=== PATIENT | male | born 1995 | race Caucasian/White ===

== ENCOUNTER → 2017-01-10 | Outpatient (CLI) | payer BC ==
[~2017-01-10] MED LIST: OSLT75C PO
== END ==
LOC: RT 12:19
PROVIDERS: ATTEND Family Medicine
DX: R05 Cough (principal)
CPT/HCPCS: 94060; 94726; 94729

== ENCOUNTER → 2017-12-12 | Outpatient (CLI) | payer BC ==
--- NOTE | 2017-12-12 11:03 | Diagnostic Imaging Report ---
EXAM: CERVICAL SPINE 3 VIEWS OR LESS INDICATION: NECK PAIN COMPARISON: None. FINDINGS: Normal alignment. Vertebral body heights preserved. No fractures. Normal prevertebral soft tissues. No substantial spondylotic change. IMPRESSION: Negative cervical spine radiographs. Dictated by: Dictated on workstation # [id number]
== END ==
LOC: RAD 10:34
PROVIDERS: ATTEND Nurse Practitioner Family
DX: M54.2 Cervicalgia (principal)
CPT/HCPCS: 72040

== ENCOUNTER → 2019-03-12 | Outpatient (CLI) | payer BC, OTHER ==
[~2019-03-12] MED LIST changes: +ONDA4TAB10 PO; +TRAM50TA2 PO
--- NOTE | 2019-03-12 12:25 | Diagnostic Imaging Report ---
PROCEDURE: US Gallbladder. TECHNIQUE: Multiple real-time grayscale images were obtained over the right upper quadrant in various projections. INDICATION: Upper quadrant pain, nausea, vomiting, diarrhea COMPARISON: None available. Findings: The liver demonstrates diffusely increased echogenicity with a coarsened echotexture without focal hepatic mass. Layering internal echoes are identified within the gallbladder. There is however no evidence of gallbladder wall thickening or pericholecystic fluid. The common bile duct is within normal limits measuring 0.5 cm. The pancreas is obscured by overlying bowel gas. The right kidney is within normal limits size. No evidence of hydronephrosis or solid renal mass. No significant free fluid. Negative sonographic Martinez sign. Normal direction of flow within the main portal vein. Minimally visualized portions of inferior vena cava and aorta are unremarkable. Impression: Sludge and/or tiny stones within the gallbladder without evidence of acute cholecystitis. Fatty infiltration of the liver. Dictated by: Dictated on workstation # [id number]
== END ==
LOC: RAD 06:39
PROVIDERS: ATTEND Surgery
DX: K76.0 Fatty (change of) liver, not elsewhere classified (principal); R19.7 Diarrhea, unspecified
CPT/HCPCS: 76705

== ENCOUNTER 2019-03-16 06:21 | Outpatient (CLI) | payer BC ==
[~2019-03-16] VITALS: Ht 165.1 cm; Wt 54.4 kg
[~2019-03-16 06:21] MED LIST changes: -ONDA4TAB10 PO; -TRAM50TA2 PO
[2019-03-16] MEDS ORDERED: ONDA4TAB10 PO (09:57)
[2019-03-16] MEDS ORDERED: TRAM50TA2 PO (09:57)
== END 2019-03-16 10:11 | disposition home or self-care (01) ==
LOC: PREOP 06:21
PROVIDERS: ATTEND Surgery
DX: Z01.818 Encounter for other preprocedural examination (principal)

== ENCOUNTER 2019-03-18 09:14 | Day surgery (SDC) | payer BC ==
[2019-03-18] VITALS (12 sets, daily range): BP systolic 105–137; BP diastolic 64–106
[~2019-03-18] VITALS: Ht 165.1 cm; Wt 54.4 kg
[~2019-03-18 09:14] MED LIST changes: +ONDA4TAB10 PO; +TRAM50TA2 PO
[2019-03-18] MEDS: LACTATED RINGERS 1,000 ML IV PRN ×2 (09:45→14:25)
[2019-03-18 09:56] LABS: BASOPHILS % (AUTO) 1 % (0-10); EOSINOPHILS # (AUTO) 0.1 10^3/uL (0.0-0.3); EOSINOPHILS % (AUTO) 2 % (0-10); HEMATOCRIT 42 % (40-54); HEMOGLOBIN 15.1 G/DL (13.3-17.7); LYMPHOCYTES # (AUTO) 3.3 X 10^3 (1.0-4.0); LYMPHOCYTES % (AUTO) 46 % (12-44); MEAN CORPUSCULAR HEMOGLOBIN 29 PG (25-34); MEAN CORPUSCULAR HGB CONC 36 G/DL (32-36); MEAN CORPUSCULAR VOLUME 81 FL (80-99); MEAN PLATELET VOLUME 10.4 FL (7.4-10.4); MONOCYTES # (AUTO) 0.5 X 10^3 (0.0-1.0); MONOCYTES % (AUTO) 7 % (0-12); NEUTROPHILS # (AUTO) 3.2 X 10^3 (1.8-7.8); NEUTROPHILS % (AUTO) 44 % (42-75); PLATELET COUNT 305 10^3/uL (130-400); RED CELL DISTRIBUTION WIDTH 12.3 % (10.0-14.5); WHITE BLOOD COUNT 7.2 10^3/uL (4.3-11.0)
--- NOTE | 2019-03-18 10:41 | Progress Note-Pre Operative ---
Pre-Operative Progress Note H&P Reviewed The H&P was reviewed, patient examined and no changes noted. Date Seen by Provider: March 18, 2019 Time Seen by Provider: 10: Date H&P Reviewed: March 18, 2019 Time H&P Reviewed: 10:30 Pre-Operative Diagnosis: chronic calculous cholecystitis, GERD BAO WEINSTEIN MD March 18, 2019 10:41
[2019-03-18] MEDS ORDERED: HYDR-34 PO (10:44)
[2019-03-18] MEDS ORDERED: morphine INJ 10 MG/ML 1ML (SYR OR VIAL) IVP PRN ×2 (10:45)
[2019-03-18] MEDS ORDERED: ACETAMINOPHEN 325 MG TABLET PO PRN (10:45)
[2019-03-18] MEDS ORDERED: ONDANSETRON 4 MG/2 ML (SDV) Z0FRAN IVP PRN (10:45)
[2019-03-18] MEDS ORDERED: oxyCODONE/APAP 5/325MG (PERCOCET 5) TABLET PO PRN (10:45)
--- NOTE | 2019-03-18 10:45 | Discharge Inst-Surgical ---
D/C Lap Instructions-CORINNA New, Converted, or Re-Newed RX: RX on Chart Follow Up Appt in 2 weeks Activity as tolerated No driving for 24 hours No driving while on pain medications Incentive Spirometry use every 2 hours while awake Regular Diet Symptoms to Report: Fever over 101 degree F, Nausea/Vomiting Infection Signs and Symptoms to report: Increased redness, Foul odor of wound, Increased drainage Bathing instructions: May shower Operative Area Clean/Dry; Keep incision clean/dry If any problems/questions: Contact your physician or go to Emergency Room BAO WEINSTEIN MD March 18, 2019 10:45
[2019-03-18] MEDS ORDERED: ceFAZolin 2 GM/50 ML NS 50 ML IV ONE (11:30)
--- OUTSIDE RECORDS SUMMARY | 2019-03-18 12:21 | XMS REPORT | Continuity of Care Document ---
Author Organization Unknown Address Unknown Allergies Active Description Code Type Severity Reaction Onset Reported/Identified Relationship to Patient Clinical Status Yes No Known Drug Allergies [id number] Drug Allergy Unknown N/A 10/31/2012 Medications There is no data. Problems Date Dx Coded Attending Type Code Diagnosis Diagnosed By 10/31/2012 Ot 487.1 FLU W RESP MANIFEST NEC 10/31/2012 Ot 780.60 FEVER, UNSPECIFIED 02/19/2016 ORENDER DO, ZULEIKA S Ot M54.6 PAIN IN THORACIC SPINE 02/28/2016 ORENDER DO, ZULEIKA S Ot M54.6 PAIN IN THORACIC SPINE 03/01/2016 ORENDER DO, ZULEIKA S Ot M54.6 PAIN IN THORACIC SPINE 03/05/2016 ORENDER DO, ZULEIKA S Ot M54.6 PAIN IN THORACIC SPINE 07/04/2016 ORENDER DO, ZULEIKA S Ot M54.6 PAIN IN THORACIC SPINE 01/10/2017 ORENDER DO, ZULEIKA S Ot M54.6 PAIN IN THORACIC SPINE 01/10/2017 ORENDER DO, ZULEIKA S Ot R05 COUGH 01/13/2017 ORENDER DO, ZULEIKA S Ot M54.6 PAIN IN THORACIC SPINE 01/13/2017 ORENDER DO, ZULEIKA S Ot R05 COUGH 01/16/2017 ORENDER DO, ZULEIKA S Ot R05 COUGH 01/16/2017 ORENDER DO, ZULEIKA S Ot M54.6 PAIN IN THORACIC SPINE 01/16/2017 ORENDER DO, ZULEIKA S Ot R05 COUGH 01/21/2017 ORENDER DO, ZULEIKA S Ot R05 COUGH 03/19/2017 ORENDER DO, ZULEIKA S Ot M54.6 PAIN IN THORACIC SPINE 03/19/2017 ORENDER DO, ZULEIKA S Ot R05 COUGH 03/20/2017 ORENDER DO, ZULEIKA S Ot M54.6 PAIN IN THORACIC SPINE 03/20/2017 ORENDER DO, ZULEIKA S Ot R05 COUGH 03/24/2017 ORENDER DO, ZULEIKA S Ot M54.6 PAIN IN THORACIC SPINE 03/24/2017 ORENDER DO, ZULEIKA S Ot R05 COUGH 03/25/2017 ORENDER DO, ZULEIKA S Ot M54.6 PAIN IN THORACIC SPINE 03/25/2017 ORENDER DO, ZULEIKA S Ot R05 COUGH 10/04/2017 ORENDER DO, ZULEIKA S Ot M54.6 PAIN IN THORACIC SPINE 10/04/2017 ORENDER DO, ZULEIKA S Ot R05 COUGH 10/04/2017 ORENDER DO, ZULEIKA S Ot M54.6 PAIN IN THORACIC SPINE 10/04/2017 ORENDER DO, ZULEIKA S Ot R05 COUGH 12/15/2017 BELTRAN, SHUKRI R DATA MODELING ARCHITECT Ot M54.2 CERVICALGIA 12/24/2017 BELTRAN, SHUKRI R DATA MODELING ARCHITECT Ot M54.2 CERVICALGIA 12/25/2017 BELTRAN, SHUKRI R DATA MODELING ARCHITECT Ot M54.2 CERVICALGIA 12/25/2017 BELTRAN, SHUKRI R DATA MODELING ARCHITECT Ot M54.2 CERVICALGIA 08/24/2018 BELTRAN, SHUKRI R DATA MODELING ARCHITECT Ot M54.2 CERVICALGIA 03/16/2019 BAO WEINSTEIN MD Ot K76.0 FATTY (CHANGE OF) LIVER, NOT ELSEWHERE C 03/16/2019 BAO WEINSTEIN MD Ot R19.7 DIARRHEA, UNSPECIFIED 03/17/2019 BAO WEINSTEIN MD Ot Z01.818 ENCOUNTER FOR OTHER PREPROCEDURAL EXAMIN Procedures There is no data. Results There is no data. Encounters ACCT No. Visit Date/Time Discharge Status Pt. Type Provider Facility Loc./Unit Complaint 02/201803/03/2019 14:09:49 03/03/2019 23:59:59 CLS Outpatient Joaquim Yepezqueline Antonio. [id number] 03/16/2019 06:21:00 03/16/2019 10:11:00 DIS Outpatient BAO WEINSTEIN MD [facility] PREOP REFLUX,CHRONIC CALCULOUS CHOLECYSTITIS [id number] 03/12/2019 06:39:00 03/12/2019 23:59:59 CLS Outpatient BAO WEINSTEIN MD [facility] RAD RUQ PAIN,N/V,DIARRHEA [id number] 12/12/2017 10:34:00 12/12/2017 23:59:59 CLS Outpatient SHUKRI GONG DATA MODELING ARCHITECT [facility] RAD NECK PAIN [id number] 01/10/2017 12:19:00 01/10/2017 23:59:59 CLS Outpatient ZULEIKA YEPEZ DO [facility] RT COUGH [id number] 02/15/2016 13:34:00 02/15/2016 23:59:59 CLS Outpatient ZULEIKA YEPEZ DO [facility] RAD THORAIC PAIN [id number] 03/22/2019 12:45:00 PEN BAO Wylie MD [facility] CARD RUQ PAIN,N/V,DIARRHEA [id number] 03/18/2019 13:30:00 PEN BAO Wylie MD [facility] SDC REFLUX,CHRONIC CALCULOUS CHOLECYSTITIS [id number] 10/31/2012 22:01:00 Document Registration
[2019-03-18] MEDS ORDERED: MIDAZOLAM 2 MG/2 ML (VERSED) VIAL ONE ×2 (12:42→12:52)
[2019-03-18] MEDS ORDERED: MIDAZOLAM 2 MG/2 ML (VERSED) VIAL IV ONE (12:45)
[2019-03-18] MEDS ORDERED: BUP/EPI 0.5% 1:200,000 (SENSORCAINE) 30 ML VIAL ONE (12:51)
[2019-03-18] MEDS ORDERED: proPOfol 200 MG/20 ML (DIPRIVAN) VIAL IV ONE (12:52)
[2019-03-18] MEDS ORDERED: LIDOCAINE PF 2% 5 ML (XYLOCAINE) VIAL ONE (12:52)
[2019-03-18] MEDS ORDERED: fentaNYL INJECTION 100 MCG/2 ML AMP ONE (12:53)
[2019-03-18] MEDS ORDERED: ROCURONIUM 10 MG/ML 5 ML SYRINGE IV ONE (12:56)
[2019-03-18] MEDS ORDERED: DEXAMETHASONE 10 MG/ML (DECADRON) 1 ML VIAL ONE (12:56)
[2019-03-18] MEDS ORDERED: ONDANSETRON 4 MG/2 ML (SDV) Z0FRAN ONE (12:56)
[2019-03-18] MEDS ORDERED: SEVOFLURANE (ULTANE) 15 ML INHAL SOLN ONE (14:12)
[2019-03-18] MEDS ORDERED: GLYCOPYRROLATE 0.2 MG/ML (ROBINUL) 2 ML VIAL ONE (14:21)
[2019-03-18] MEDS ORDERED: NEOSTIGMINE 1 MG/ML 5 ML SYRINGE ONE (14:21)
--- NOTE | 2019-03-18 14:21 | Anesthesia-General Post-Op ---
General Patient Condition Mental Status/LOC: Same as Preop Cardiovascular: Satisfactory Nausea/Vomiting: Absent Respiratory: Satisfactory Pain: Controlled Complications: Absent Post Op Complications Complications None Follow Up Care/Instructions Patient Instructions None needed. Anesthesia/Patient Condition Patient Condition Patient is doing well, no complaints, stable vital signs, no apparent adverse anesthesia problems. No complications reported per nursing. [place] [facility] [place]: Yes ALY KUMAR CRNA March 18, 2019 14:21
[2019-03-18] MEDS ORDERED: morphine INJ 10 MG/ML 1ML (SYR OR VIAL) IVP ONE (15:15)
--- NOTE | 2019-03-18 20:33 | OPERATIVE REPORT ---
DATE OF SERVICE: 03/18/2019 ATTENDING PRIMARY CARE PHYSICIAN: Dr. Yepez. PREOPERATIVE DIAGNOSIS: Chronic calculous cholecystitis. POSTOPERATIVE DIAGNOSIS: Chronic calculous cholecystitis. PROCEDURE: Laparoscopic cholecystectomy. SURGEON: Bao Weinstein MD ANESTHESIA: Conscious sedation. ESTIMATED BLOOD LOSS: Minimal. FINDINGS: Slight gallbladder wall thickening as well as gallbladder dilatation, thick biliary sludge. DISPOSITION: The patient tolerated the procedure well. INDICATIONS: The patient is a 23-year-old male who was referred over to us for epigastric pain, which had been going on for the past year; however, has become worse and has become more frequent. He reports that this was initially discomfort; however, did develop a bloating as well as nausea usually after meals. He was seen by his primary care physician and was started on Protonix. However, states that this did not help. He had an ultrasound performed, which did show gallstones. DESCRIPTION OF PROCEDURE: The patient was brought to the operating room, laid supine on the table. After adequate IV pain and sedating medications and general endotracheal intubation, the abdomen was prepped and draped in standard surgical fashion. A 0.5% Marcaine with epinephrine was then used to anesthetize the overlying skin in the left upper abdominal quadrant and a transverse skin incision made using a 15 blade. An 0 silk suture was applied to the medial aspect of the incision for retraction and a Veress needle inserted with a low opening pressure of 0 mmHg and the abdomen was then insufflated to 15 mmHg pressure. The Veress needle removed and a 5 mm Xcel trocar placed followed by a 5 mm 45 degree angle laparoscope visualizing the peritoneal cavity. A 4-quadrant abdominal exploration was performed. There was a dilated gallbladder as well as a mild gallbladder wall thickening. It was visualized the stomach, liver, omentum appeared normal. Under direct visualization, we then proceeded to place a supraumbilical 10 mm port after the skin and peritoneal lining were anesthetized using 0.5% Marcaine with epinephrine and a transverse skin incision made using a 15 blade. In a similar manner, a right upper abdominal quadrant 5 mm ports placed. The patient was then placed in reverse Trendelenburg position as well as plane right side up, left side down. The fundus of the gallbladder was retracted anteriorly and superiorly. The hepatoduodenal ligament was then opened using blunt dissection as well as cautery on the hook instrument. The critical view of safety was identified including the triangle of Calot as well as the cystic duct and artery is only two structures going into the gallbladder as well as the cystic plate behind the proximal gallbladder. A timeout was then taken and the cystic duct and artery were clipped proximally, distally and cut with EndoShears. The gallbladder was then dissected off the liver bed using cautery and the hook instrument with visualization of good hemostasis as well as no leaking ducts of Luschka. The gallbladder was removed through the 10 mm port site using an EndoCatch bag. The 10 mm port site fascia and peritoneum were then closed under direct visualization using a Rishi-Joan device and 0 Vicryl suture. The abdomen was desufflated and remaining ports removed. All skin incisions were closed using 4-0 Monocryl running subcuticular sutures. Wounds were then cleaned and covered with Dermabond. The patient tolerated the procedure well. We will start him on IV and oral pain medication as well as a clear liquid diet. Once he is tolerating clears, has good pain control with oral pain medications, ambulating well, we will discharge him home. He was instructed to do no heavy lifting or exertion for the next two weeks. Job ID: [id number] DocumentID: [id number] Dictated Date: 03/18/2019 14:29:31 Director Of [employer] Date: 03/18/2019 20:32:54 Dictated By: BAO WEINSTEIN MD
== END 2019-03-18 17:30 | disposition home or self-care (01) ==
LOC: SDC 09:14
PROVIDERS: ATTEND Surgery
DX: K81.1 Chronic cholecystitis (principal); K21.9 Gastro-esophageal reflux disease without esophagitis
CPT/HCPCS: 36415; 85025; 87081

== ENCOUNTER → 2019-09-21 | Outpatient (CLI) | payer BC ==
[~2019-09-21] MED LIST changes: +HYDR-34 PO
--- NOTE | 2019-09-21 15:44 | Diagnostic Imaging Report ---
INDICATION: Injury to the left foot with pain in the region of the left great toe. TIME OF EXAM: 3:03 p.m. FINDINGS: Three views of the left foot were obtained. The metatarsals and phalanges are intact. Midfoot and hindfoot are unremarkable. No fractures are seen. IMPRESSION: No acute bony abnormality is detected. Dictated by: Dictated on workstation # [id number]
== END ==
LOC: RAD 14:42
PROVIDERS: ATTEND Nurse Practitioner Family
DX: S99.922A Unspecified injury of left foot, initial encounter (principal)
CPT/HCPCS: 73630

== ENCOUNTER 2020-01-05 05:47 | Outpatient (CLI) | payer BC ==
[~2020-01-05] VITALS: Ht 157.5 cm; Wt 72.7 kg
[~2020-01-05 05:47] MED LIST changes: +ONDA-105 PO; -ONDA4TAB10 PO; -TRAM50TA2 PO; +TRM50T PO
[2020-01-05] MEDS ORDERED: NF-COLE1GM PO (15:45)
[2020-01-05] MEDS ORDERED: PANT40TA2 PO (15:45)
== END 2020-01-05 15:47 | disposition home or self-care (01) ==
LOC: PREOP 05:47
PROVIDERS: ATTEND Surgery
DX: Z01.818 Encounter for other preprocedural examination (principal)

== ENCOUNTER 2020-05-15 05:39 | Outpatient (RCR) | payer BC ==
[~2020-05-15] VITALS: Ht 157.5 cm; Wt 73.0 kg
[~2020-05-15 05:39] MED LIST changes: +NF-COLE1GM PO; +PANT40TA2 PO
[2020-05-15] MEDS ORDERED: SUCR1TAB PO ×2 (11:48)
[2020-05-15] MEDS ORDERED: DICY10CA12 PO ×2 (11:48)
[2020-05-15] MEDS ORDERED: ONDA-105 PO ×2 (11:48)
== END 2020-05-15 12:03 | disposition home or self-care (01) ==
LOC: PREOP 05:39
PROVIDERS: ATTEND Otolaryngology Otolaryngology/Facial Plastic Surgery
DX: Z01.812 Encounter for preprocedural laboratory examination (principal); R04.0 Epistaxis; Z20.828 Contact with and (suspected) exposure to other viral communicable diseases
CPT/HCPCS: 87635

== ENCOUNTER 2020-05-19 06:03 | Day surgery (SDC) | payer BC ==
[~2020-05-19] VITALS: Ht 157.5 cm; Wt 73.0 kg
[2020-05-19] VITALS (12 sets, daily range): BP systolic 105–119; BP diastolic 63–95
[~2020-05-19 06:03] MED LIST changes: +DICY10CA12 PO; +SUCR1TAB PO
[2020-05-19] MEDS ORDERED: FAMOTIDINE 20MG/2ML IV (PEPCID) IV ONE (06:30)
[2020-05-19] MEDS ORDERED: fentaNYL INJECTION 100 MCG/2 ML AMP IV ONE (06:30)
[2020-05-19] MEDS ORDERED: ONDANSETRON 4 MG/2 ML (SDV) Z0FRAN IV ONE (06:30)
[2020-05-19] MEDS: LACTATED RINGERS 1,000 ML IV PRN ×2 (07:20→09:18)
--- NOTE | 2020-05-19 07:21 | Progress Note-Pre Operative ---
Pre-Operative Progress Note H&P Reviewed The H&P was reviewed, patient examined and no changes noted. Date Seen by Provider: May 19, 2020 Time Seen by Provider: : Date H&P Reviewed: May 19, 2020 Time H&P Reviewed: :30 Pre-Operative Diagnosis: Bilat Chronic/ Recurrent Epistaxis JUAQUIN TORBIIO MD May 19, 2020 07:21
[2020-05-19 07:25] LABS: BASOPHILS % (AUTO) 0 % (0-10); EOSINOPHILS # (AUTO) 0.3 10^3/uL (0.0-0.3); EOSINOPHILS % (AUTO) 4 % (0-10); HEMATOCRIT 42 % (40-54); HEMOGLOBIN 14.9 G/DL (13.3-17.7); LYMPHOCYTES # (AUTO) 3.4 X 10^3 (1.0-4.0); LYMPHOCYTES % (AUTO) 38 % (12-44); MEAN CORPUSCULAR HEMOGLOBIN 30 PG (25-34); MEAN CORPUSCULAR HGB CONC 36 G/DL (32-36); MEAN CORPUSCULAR VOLUME 83 FL (80-99); MEAN PLATELET VOLUME 10.5 FL (7.4-10.4); MONOCYTES # (AUTO) 0.7 X 10^3 (0.0-1.0); MONOCYTES % (AUTO) 8 % (0-12); NEUTROPHILS # (AUTO) 4.5 X 10^3 (1.8-7.8); NEUTROPHILS % (AUTO) 50 % (42-75); PLATELET COUNT 281 10^3/uL (130-400); RED CELL DISTRIBUTION WIDTH 12.7 % (10.0-14.5); WHITE BLOOD COUNT 8.9 10^3/uL (4.3-11.0)
[2020-05-19] MEDS ORDERED: proPOfol 200 MG/20 ML (DIPRIVAN) VIAL IV ONE (07:59)
[2020-05-19] MEDS ORDERED: ONDANSETRON 4 MG/2 ML (SDV) Z0FRAN ONE (07:59)
[2020-05-19] MEDS ORDERED: LIDOCAINE PF 2% 5 ML (XYLOCAINE) VIAL ONE (07:59)
[2020-05-19] MEDS ORDERED: MIDAZOLAM 2 MG/2 ML (VERSED) VIAL ONE (08:00)
[2020-05-19] MEDS ORDERED: SUCCINYLCHOLINE INJ 100 MG/5 ML SYR ONE (08:00)
[2020-05-19] MEDS ORDERED: fentaNYL INJECTION 100 MCG/2 ML AMP ONE (08:00)
[2020-05-19] MEDS ORDERED: SEVOFLURANE (ULTANE) 15 ML INHAL SOLN ONE ×2 (08:00→08:48)
[2020-05-19] MEDS ORDERED: COCAINE HCL 4% 2 ML SYR ONE (08:03)
[2020-05-19] MEDS ORDERED: MUPIROCIN 2% OINT 22 GM (BACTROBAN) TUBE ONE (08:04)
[2020-05-19] MEDS ORDERED: LIDOCAINE/EPI 1%-1:100,000 (XYLOCAINE) 20ML ONE (08:04)
[2020-05-19] MEDS ORDERED: PHENYLEPHRINE 0.5% NASAL SPR (NEO-SYNEPHRINE) REG ONE (08:04)
[2020-05-19] MEDS ORDERED: SUGAMMADEX 500 MG/5 ML VIAL (BRIDION) IV ONE (08:39)
[2020-05-19] MEDS ORDERED: D5 1/2 NS W/KCL 20 MEQ/L 1,000 ML IV SCH (08:53)
--- NOTE | 2020-05-19 08:53 | Progress Note-Post Operative ---
Post-Operative Progess Note Surgeon (s)/Sheep Or Calf Grader (s) Surgeon JUAQUIN TORIBIO MD Sheep Or Calf Grader n/a Pre-Operative Diagnosis Bilat Chronic/ Recurrent Epistaxis Post-Operative Diagnosis same Post-Op Procedure Note Date of Procedure: May 19, 2020 Name of Procedure Performed: Bilateral Endoscopic Repair of Epistaxis Description & Findings Description and Findings: n/a Anesthesia Type get Estimated Blood Loss minimal Packing none. Specimen(s) collected/removed none JUAQUIN TORIBIO MD May 19, 2020 08:53
[2020-05-19] MEDS ORDERED: PHENYLEPHRINE 0.5% NASAL SPR (NEO-SYNEPHRINE) REG PRN (09:00)
[2020-05-19] MEDS ORDERED: HYDROcodone/APAP 5 MG/325 MG (LORTAB) TAB PO PRN (09:00)
[2020-05-19] MEDS ORDERED: ACETAMINOPHEN 500 MG TAB (TYLENOL) PO PRN (09:00)
[2020-05-19] MEDS ORDERED: ONDANSETRON 4 MG/2 ML (SDV) Z0FRAN IVP PRN (09:15)
[2020-05-19] MEDS ORDERED: HYDROmorphone 2 MG/ML VIAL (DILAUDID) IV ONE (09:15)
--- NOTE | 2020-05-19 10:41 | Anesthesia-General Post-Op ---
General Patient Condition Mental Status/LOC: Same as Preop Cardiovascular: Satisfactory Nausea/Vomiting: Absent Respiratory: Satisfactory Pain: Controlled Complications: Absent Post Op Complications Complications None Follow Up Care/Instructions Patient Instructions None needed. Anesthesia/Patient Condition Patient Condition Patient is doing well, no complaints, stable vital signs, no apparent adverse anesthesia problems. No complications reported per nursing. [place] [facility] [place]: [place] ALY KUMAR CRNA May 19, 2020 10:41
[2020-05-19] MEDS ORDERED: HYDR-3812 PO ×2 (10:59)
== END 2020-05-19 11:45 | disposition home or self-care (01) ==
LOC: SDC 06:03
PROVIDERS: ATTEND Otolaryngology Otolaryngology/Facial Plastic Surgery
DX: R04.0 Epistaxis (principal); K21.9 Gastro-esophageal reflux disease without esophagitis; K58.9 Irritable bowel syndrome, unspecified; Z79.899 Other long term (current) drug therapy
CPT/HCPCS: 36415; 85025; 87081

== ENCOUNTER 2020-06-22 05:38 | Outpatient (CLI) | payer BC ==
[~2020-06-22] VITALS: Ht 157 cm; Wt 70.4 kg
[~2020-06-22 05:38] MED LIST changes: +ACHD5005 PO
== END 2020-06-22 12:54 ==
LOC: PREOP 05:38
PROVIDERS: ATTEND Surgery
DX: Z01.818 Encounter for other preprocedural examination (principal)

== ENCOUNTER 2020-06-29 08:43 | Day surgery (SDC) | payer BC ==
[2020-06-29] VITALS (10 sets, daily range): BP systolic 103–128; BP diastolic 49–96
[~2020-06-29] VITALS: Ht 157.5 cm; Wt 74.4 kg
[2020-06-29] MEDS ORDERED: FAMOTIDINE 20MG/2ML IV (PEPCID) IV ONE (09:15)
[2020-06-29] MEDS ORDERED: ONDANSETRON 4 MG/2 ML (SDV) Z0FRAN IV ONE (09:15)
[2020-06-29] MEDS ORDERED: LACTATED RINGERS 1,000 ML IV PRN (09:18)
[2020-06-29 09:19] LABS: BASOPHILS % (AUTO) 0 % (0-10); EOSINOPHILS # (AUTO) 0.1 10^3/uL (0.0-0.3); EOSINOPHILS % (AUTO) 2 % (0-10); HEMATOCRIT 43 % (40-54); HEMOGLOBIN 15.3 G/DL (13.3-17.7); LYMPHOCYTES # (AUTO) 2.8 X 10^3 (1.0-4.0); LYMPHOCYTES % (AUTO) 39 % (12-44); MEAN CORPUSCULAR HEMOGLOBIN 29 PG (25-34); MEAN CORPUSCULAR HGB CONC 36 G/DL (32-36); MEAN CORPUSCULAR VOLUME 82 FL (80-99); MEAN PLATELET VOLUME 10.3 FL (7.4-10.4); MONOCYTES # (AUTO) 0.5 X 10^3 (0.0-1.0); MONOCYTES % (AUTO) 6 % (0-12); NEUTROPHILS # (AUTO) 3.7 X 10^3 (1.8-7.8); NEUTROPHILS % (AUTO) 52 % (42-75); PLATELET COUNT 293 10^3/uL (130-400); WHITE BLOOD COUNT 7.1 10^3/uL (4.3-11.0)
--- NOTE | 2020-06-29 09:23 | Progress Note-Pre Operative ---
Pre-Operative Progress Note H&P Reviewed The H&P was reviewed, patient examined and no changes noted. Date Seen by Provider: Jun 29, 2020 Time Seen by Provider: 09:22 Date H&P Reviewed: Jun 29, 2020 Time H&P Reviewed: 09:15 Pre-Operative Diagnosis: GERD, symptomatic hiatal hernia TRELL RAMÍREZ APRN Jun 29, 2020 09:23
[2020-06-29] MEDS ORDERED: ceFAZolin 2 GM IV Premixed 50 ML IV ONE (09:30)
[2020-06-29] MEDS ORDERED: ONDA4TAB11 PO (09:43)
[2020-06-29] MEDS ORDERED: HYDR118S10 PO (09:43)
--- NOTE | 2020-06-29 09:46 | Discharge Inst-Surgical ---
D/C Lap Instructions-KIDO Reconcile Patient Problems Problems Reviewed?: Yes New, Converted, or Re-Newed RX: RX on Chart Follow Up Appt in 2 weeks Activity as tolerated No driving for 24 hours No driving while on pain medications Incentive Spirometry use every 2 hours while awake Diet clear liquid x 5 days, then soft food for 5 days, then may resume regular foods No carbonated beverages, lettuce,spinach, breads,crackers,for 6 weeks Symptoms to Report: Fever over 101 degree F, Nausea/Vomiting Infection Signs and Symptoms to report: Increased redness, Foul odor of wound, Increased drainage Bathing instructions: May shower Operative Area Clean/Dry; Keep incision clean/dry If any problems/questions: Contact your physician or go to Emergency Room TRELL RAMÍREZ APRN Jun 29, 2020 09:46
[2020-06-29] MEDS: LACTATED RINGERS 1,000 ML IV PRN ×2 (10:24→12:15)
[2020-06-29] MEDS ORDERED: BUP/EPI 0.25% 1:200,000 (MARCAINE) 30 ML VIAL ONE (10:59)
[2020-06-29] MEDS ORDERED: ONDANSETRON 4 MG/2 ML (SDV) Z0FRAN ONE (11:14)
[2020-06-29] MEDS ORDERED: ROCURONIUM 10 MG/ML 5 ML SYRINGE IV ONE (11:14)
[2020-06-29] MEDS ORDERED: proPOfol 200 MG/20 ML (DIPRIVAN) VIAL IV ONE (11:14)
[2020-06-29] MEDS ORDERED: LIDOCAINE PF 2% 5 ML (XYLOCAINE) VIAL ONE (11:14)
[2020-06-29] MEDS ORDERED: fentaNYL INJECTION 100 MCG/2 ML AMP ONE ×2 (11:15→16:07)
[2020-06-29] MEDS ORDERED: MIDAZOLAM 2 MG/2 ML (VERSED) VIAL ONE (11:15)
[2020-06-29] MEDS ORDERED: GLYCOPYRROLATE 0.2 MG/ML (ROBINUL) 2 ML VIAL ONE (11:29)
[2020-06-29] MEDS ORDERED: NEOSTIGMINE 3 MG/3 ML VIAL ONE (11:29)
[2020-06-29] MEDS ORDERED: HYDROmorphone 2 MG/ML VIAL (DILAUDID) IV ONE (12:45)
[2020-06-29] MEDS ORDERED: morphine INJ 10 MG/ML 1ML (SYR OR VIAL) IVP ONE (12:45)
[2020-06-29] MEDS ORDERED: ONDANSETRON 4 MG/2 ML (SDV) Z0FRAN IVP PRN (12:45)
[2020-06-29] MEDS ORDERED: MEPERIDINE (DEMEROL) INJ 50 MG/ML IVP ONE (12:45)
[2020-06-29] MEDS ORDERED: SEVOFLURANE (ULTANE) 15 ML INHAL SOLN ONE (13:10)
--- NOTE | 2020-06-29 13:23 | Progress Note-Post Operative ---
Post-Operative Progess Note Surgeon (s)/Chopping Machine Operator (s) Surgeon BAO WEINSTEIN MD Chopping Machine Operator: carol ann mojica [facility] [employer] Pre-Operative Diagnosis GERD, symptomatic hiatal hernia Post-Operative Diagnosis same Procedure & Operative Findings Date of Procedure 06/29/20 Procedure Performed/Findings laparoscopic hiatal hernia repair and vin fundoplication. Anesthesia Type get Estimated Blood Loss Estimated blood loss (mL): minimal Specimens/Packing Specimens Removed none BAO WEINSTEIN MD Jun 29, 2020 13:23
--- NOTE | 2020-06-29 13:35 | Anesthesia-General Post-Op ---
General Patient Condition Mental Status/LOC: Same as Preop Cardiovascular: Satisfactory Nausea/Vomiting: Absent Respiratory: Satisfactory Pain: Controlled Complications: Absent Post Op Complications Complications None Follow Up Care/Instructions Patient Instructions None needed. Anesthesia/Patient Condition Patient Condition Patient is doing well, no complaints, stable vital signs, no apparent adverse anesthesia problems. No complications reported per nursing. MANUEL HORVATH CRNA Jun 29, 2020 13:35
[2020-06-29] MEDS: fentaNYL INJECTION 100 MCG/2 ML AMP IVP PRN ×2 (16:20→18:22)
--- NOTE | 2020-06-29 16:46 | NUR ---
Fentanyl pulled from stock and administered 50mcg for pain rated 10/10.
[2020-06-29] MEDS: NS IV 1000 ML 1,000 ML IV SCH ×2 (16:47→20:09)
[2020-06-29] MEDS ORDERED: ENOXAPARIN 40 MG/0.4 ML (LOVENOX) SYR SC SCH (17:00)
[2020-06-29] MEDS ORDERED: CATHETER FLUSH 10 ML SYR IV PRN (17:00)
--- NOTE | 2020-06-29 18:41 | OPERATIVE REPORT ---
DATE OF SERVICE: 06/29/2020 ATTENDING PRIMARY CARE PHYSICIAN: Salma Yepez DO. PREOPERATIVE DIAGNOSES: Symptomatic hiatal hernia and gastroesophageal reflux disease. POSTOPERATIVE DIAGNOSES: Symptomatic hiatal hernia and gastroesophageal reflux disease. PROCEDURE: Laparoscopic hiatal hernia repair and Andreea fundoplication. SURGEON: Bao Borrero MD. DAY HABILITATION SUPERVISOR: Calderon Peoples APRN. ANESTHESIA: General endotracheal. ESTIMATED BLOOD LOSS: Minimal. FINDINGS: Moderate size hiatal hernia appeared to be a type 1 sliding hiatal hernia. DISPOSITION: The patient tolerated the procedure well. INDICATIONS FOR PROCEDURE: The patient is a 24-year-old male known to us. He has had different gastrointestinal issues over time. He reported nausea after eating meals and underwent a laparoscopic cholecystectomy. He then developed epigastric pain; however, after further questioning, he did have a multitude of risk factors at that time including drinking significant amounts of caffeinated beverages as well as spicy, greasy and acidic foods. We started him on Protonix; however, did not give him any relief. On 01/07/2020, he underwent an EGD with biopsy with findings were reflux esophagitis stage II, a moderate size hiatal hernia approximately 2 cm in size. Biopsies were negative for H. pylori as well as negative for Yeh's esophagus. He was started on Carafate, which did help initially; however, he did have reoccurrence of symptoms. Over time, he redeveloped the epigastric crampy pain as well as reflux and regurgitation. He did not report any hematemesis, no coffee ground emesis. We had him undergo an esophageal manometry study, which did show a short in the lower esophageal sphincter at 2.5 cm as well as normal peristaltic contractions. DESCRIPTION OF PROCEDURE: The patient was brought to the operating room, laid supine on the table. After adequate IV pain and sedative medications and general endotracheal intubation, the abdomen was prepped and draped in standard surgical fashion. A 0.5% Marcaine with epinephrine was then used to anesthetize the overlying skin in the left upper abdominal quadrant and a transverse skin incision made using a 15 blade. An 0 silk suture was applied to the medial aspect incision for retraction and a Veress needle inserted with a low opening pressure of 0 mmHg. The abdomen was then insufflated to 15 mmHg pressure. The Veress needle removed and a 5 mm XL trocar placed followed by a 5 mm 45-degree angle laparoscope visualizing the peritoneal cavity. A 4-quadrant abdominal exploration was performed. What was visualized the liver, stomach, omentum, small bowel appeared normal. Under direct visualization, we then proceeded to place a midabdominal left to midline 10 mm port after the skin and peritoneal lining were anesthetized using 0.5% Marcaine with epinephrine and a transverse skin incision made using a 15 blade. In a similar manner, a midabdominal right of midline, 10 mm port was placed followed by a right upper abdominal quadrant 5 mm port. The epigastric region was then anesthetized using 0.5% Marcaine with epinephrine and a transverse skin incision was made using a 15 blade. A tract was then created through the abdominal wall layers using a trocar to a 5 mm port and through this opening, a medium size Jaison liver retractor was placed and the left lobe of the liver retracted anteriorly and superiorly. The patient was then placed in steep reverse Trendelenburg position. The hiatal hernia was then identified at this time and appeared to be a type 1 sliding hiatal hernia. The pars flaccida was then opened using the Sonicision. We then proceeded with a full circumferential dissection of the hiatal hernia using blunt dissection as well as a Sonicision. We proceeded inferiorly identifying both left and right jo-ann of the diaphragm. We then proceeded to take down the short gastric vessels using a Sonicision as well as the angle of His connective tissue fibers also exposing the left jo-ann of the diaphragm. A 42-Icelandic bougie was then placed under direct visualization and the jo-ann was approximated inferiorly and loosely over the bougie using interrupted 2-0 Surgidac sutures using the EndoStitch device visualizing good hemostasis. The fundus was then placed underneath the esophagus and wrapped around anteriorly and sutured together including the muscularis layer of the esophagus using interrupted 2-0 Surgidac sutures loosely around the bougie. Good hemostasis was observed. The bougie was then removed as was the liver retractor. The 10 mm port site fascia and peritoneum were then closed under direct visualization using a Rishi-Joan device and 0 Vicryl suture. The abdomen was desufflated and remaining ports removed. All skin incisions were closed using 4-0 Monocryl running subcuticular sutures. Wounds were then cleaned and covered with Dermabond. The patient tolerated the procedure well. We will start IV normal pain medication as well as a clear liquid diet. We will keep him 23-hour observation and tomorrow once he is ambulating well, tolerating clear liquids of at least 60 mL every 30 minutes and has adequate pain control with oral pain medication, we will discharge him home. He will be instructed to follow a phase 1 clear liquid diet for the next 5 days and then a mechanical soft diet for a week following after that. He is also to hold off on carbonated beverages, raw salads as well as dry breads and crackers until six weeks from the surgery date. Job ID: [id number] DocumentID: [id number] Dictated Date: 06/29/2020 13:36:20 Electric Motor Repairer Date: 06/29/2020 18:41:29 Dictated By: BAO BORRERO MD MTDD
[2020-06-29] MEDS: ceFAZolin 2 GM IV Premixed 50 ML IV SCH (20:08)
[2020-06-29] MEDS: HYDROcodone/APAP 7.5MG-325 MG/15 ML (LORTAB) UDC PO PRN (20:15)
[2020-06-29] MEDS: ONDANSETRON 4 MG/2 ML (SDV) Z0FRAN IVP PRN (20:21)
[2020-06-30] MEDS: HYDROcodone/APAP 7.5MG-325 MG/15 ML (LORTAB) UDC PO PRN ×3 (00:28→09:15)
[2020-06-30] MEDS: NS IV 1000 ML 1,000 ML IV SCH (01:53)
[2020-06-30] MEDS: ONDANSETRON 4 MG/2 ML (SDV) Z0FRAN IVP PRN (01:56)
[2020-06-30 04:23] VITALS: BP 111/56
[2020-06-30] MEDS: ceFAZolin 2 GM IV Premixed 50 ML IV SCH (04:23)
[2020-06-30 05:45] LABS: BASOPHILS % (AUTO) 0 % (0-10); EOSINOPHILS % (AUTO) 0 % (0-10); HEMATOCRIT 39 % (40-54); HEMOGLOBIN 13.8 G/DL (13.3-17.7); LYMPHOCYTES % (AUTO) 9 % (12-44); MEAN CORPUSCULAR HEMOGLOBIN 30 PG (25-34); MEAN CORPUSCULAR HGB CONC 36 G/DL (32-36); MEAN CORPUSCULAR VOLUME 83 FL (80-99); MEAN PLATELET VOLUME 10.6 FL (7.4-10.4); MONOCYTES # (AUTO) 0.7 X 10^3 (0.0-1.0); MONOCYTES % (AUTO) 6 % (0-12); NEUTROPHILS # (AUTO) 9.8 X 10^3 (1.8-7.8); NEUTROPHILS % (AUTO) 85 % (42-75); PLATELET COUNT 293 10^3/uL (130-400); WHITE BLOOD COUNT 11.5 10^3/uL (4.3-11.0)
[2020-06-30 08:00] VITALS: BP 122/66
[2020-06-30] MEDS ORDERED: PANTOPRAZOLE 40 MG (PROTONIX) VIAL IV SCH (09:00)
[2020-06-30] MEDS ORDERED: CHLORASEPTIC SPRAY 177 ML LIQUID MC PRN (10:00)
--- NOTE | 2020-06-30 10:20 | Progress Note ---
Subjective Date Seen by a Provider: Jun 30, 2020 Time Seen by a Provider: 09:30 Subjective/Events-last exam doing well. tolerating clears. pain controlled. ambulating well. Objective Exam Vital Signs Date Time Temp Pulse Resp B/P (MAP) Pulse Ox O2 Delivery O2 Flow Rate FiO2 06/30/20 09:00 Room Air 06/30/20 08:00 36.2 112 18 122/66 (84) 96 Room Air 06/30/20 04:23 36.7 109 20 111/56 (74) 96 Room Air 06/29/20 23:32 36.9 113 20 115/57 (76) 94 Room Air 06/29/20 20:33 36.0 125 18 128/72 (90) 98 Room Air 06/29/20 20:10 Room Air 06/29/20 15:30 Room Air 06/29/20 14:25 36.1 20 115/76 (89) 98 Room Air 06/29/20 14:25 Room Air 06/29/20 14:15 Room Air 06/29/20 14:10 20 116/72 (87) 99 Room Air 06/29/20 14:00 20 116/72 (87) 99 OxyMask 3 06/29/20 14:00 OxyMask 3 06/29/20 13:50 20 116/72 (87) 99 OxyMask 3 06/29/20 13:45 OxyMask 5 06/29/20 13:40 20 103/57 (72) 100 OxyMask 5 06/29/20 13:30 20 103/57 (72) 100 OxyMask 6 06/29/20 13:30 OxyMask 10 06/29/20 13:28 36.1 16 108/49 (68) 100 OxyMask 10 06/29/20 13:28 OxyMask 10 I & O 06/30/20 07:00 Intake Total 3090 ml Output Total 2050 ml Balance 1040 ml Capillary Refill : Less Than 3 Seconds General Appearance: No Apparent Distress HEENT: PERRL/EOMI Neck: Full Range of Motion Respiratory: Chest Non Tender, Lungs Clear, Normal Breath Sounds Cardiovascular: Regular Rate, Rhythm Gastrointestinal: normal bowel sounds, soft, tenderness Extremity: Normal Capillary Refill Neurologic/Psychiatric: Alert, Oriented x3 Skin: Normal Color Lymphatic: No Adenopathy Results Lab Laboratory Tests 06/30/20 05:12: White Blood Count 11.5H, Red Blood Count 4.66, Hemoglobin 13.8, Hematocrit 39L, Mean Corpuscular Volume 83, Mean Corpuscular Hemoglobin 30, Mean Corpuscular Hemoglobin Concent 36, Red Cell Distribution Width 12.2, Platelet Count 293, Mean Platelet Volume 10.6H, Neutrophils (%) (Auto) 85H, Lymphocytes (%) (Auto) 9L, Monocytes (%) (Auto) 6, Eosinophils (%) (Auto) 0, Basophils (%) (Auto) 0, Neutrophils # (Auto) 9.8H, Lymphocytes # (Auto) 1.0, Monocytes # (Auto) 0.7, Eosinophils # (Auto) 0.0, Basophils # (Auto) 0.0 Microbiology 06/29/20 MRSA Screen - Final, Complete Assessment/Plan Assessment/Plan Assess & Plan/Chief Complaint reflux/regurg s/p lap HH repair and vin fundoplication. cont ambulation. clear liquids 1 week then soft diet. f/u in office in 1 week. Clinical Quality Measures DVT/VTE Risk/Contraindication: RFS Level Per Nursing on Admit: 0=No Risk/No VTE PPX BAO WEINSTEIN MD Jun 30, 2020 10:20
== END 2020-06-30 10:55 | disposition home or self-care (01) ==
LOC: SDC 08:43 → 4TH 14:20 → SDC 06-30 10:55
PROVIDERS: ATTEND Surgery
DX: K44.9 Diaphragmatic hernia without obstruction or gangrene (principal); K21.9 Gastro-esophageal reflux disease without esophagitis; Z11.2 Encounter for screening for other bacterial diseases; Z79.899 Other long term (current) drug therapy
CPT/HCPCS: 36415; 85025; 87081

== ENCOUNTER 2020-12-07 15:18 | Emergency (ER) | payer BC ==
[~2020-12-07] VITALS: Ht 157 cm; Wt 68.0 kg
[~2020-12-07 15:18] MED LIST changes: +HYDR118S10 PO; +ONDA4TAB11 PO
[2020-12-07] MEDS ORDERED: KETOROLAC 30 MG/ML VIAL IVP ONE (15:30)
--- NOTE | 2020-12-07 15:34 | ED Chest Pain ---
General Stated Complaint: HIGH HEART RATE Source: patient Exam Limitations: no limitations History of Present Illness Date Seen by Provider: Dec 07, 2020 Time Seen by Provider: 15:32 Initial Comments To ER by private vehicle from Dr. Yepez's office with reports of high heart rate. Starting last night he had an episode of lightheadedness and chest pain w ith a heart rate of 160. Today he went to Dr. Lopez's office for this reason and was found to have a heart rate in the 140s and was referred to the emergency room. No shortness of breath does have anterior chest pain and posterior midline thoracic spine pain. No fevers or chills or injury. No history of this. He is otherwise healthy and does not drink any caffeine or use any illicit substances. 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 NTG SL GARNETT MACHINE OPERATOR HELPER: No Associated Symptoms: No shortness of breath Allergies and Home Medications Allergies Coded Allergies: No Known Drug Allergies (Unverified , 06/22/20) Home Medications Dicyclomine HCl 10 Mg Capsule, 10 MG PO QID, (Reported) Hydrocodone/Acetaminophen 118 Ml Solution, 15-30 ML PO Q4H Prescribed by: TRELL RAMÍREZ on 06/29/20 0943 Ondansetron 4 Mg Tab.rapdis, 4 MG PO Q6H Prescribed by: TRELL RAMÍREZ on 06/29/20 0943 Ondansetron HCl 4 Mg Tablet, 4 MG PO Q6H PRN for NAUSEA/VOMITING, (Reported) Pantoprazole Sodium 40 Mg Tablet.dr, 40 MG PO DAILY, (Reported) Sucralfate 1 Gm Tablet, 1 GM PO ACHS, (Reported) Patient Home Medication List Home Medication List Reviewed: Yes Review of Systems Review of Systems Constitutional: see HPI EENTM: No Symptoms Reported Respiratory: No Symptoms Reported Cardiovascular: See HPI, Chest Pain Gastrointestinal: No Symptoms Reported Genitourinary: No Symptoms Reported Musculoskeletal: no symptoms reported Skin: no symptoms reported Psychiatric/Neurological: No Symptoms Reported Endocrine: No Symptoms Reported Past Ktpxxfl-Ngqkne-Ydnnrs Hx Patient Social History Type Used: Electronic/Vapor 2nd Hand Smoke Exposure: No Recent Hopitalizations: No Immunizations Up To Date Tetanus Booster (TDap): Less than 5yrs PED Vaccines UTD: No Seasonal Allergies Seasonal Allergies: No Past Medical History Surgeries: Yes (NOSE BLEED) Gallbladder Respiratory: No Currently Using CPAP: No Currently Using BIPAP: No Cardiac: No Neurological: No Reproductive Disorders: No Sexually Transmitted Disease: No HIV/AIDS: No Genitourinary: No Gastrointestinal: Yes (nausea) Gastroesophageal Reflux, Irritable Bowel Musculoskeletal: No Endocrine: No HEENT: Yes (epitaxis) Hearing Impairment: Denies Cancer: No Psychosocial: No Integumentary: No Blood Disorders: No Adverse Reaction/Blood Tranf: No (N/A) Physical Exam Vital Signs Vital Signs - First Documented 12/07/20 15:23 Temp 36.5 Pulse 93 Resp 14 B/P (MAP) 135/87 (103) Pulse Ox 99 O2 Delivery Room Air Capillary Refill : Height, Weight, BMI Height: 5'5.00" Weight: 120lbs. 0.0oz. 54.298643yr; 29.99 BMI Method:Estimated General Appearance: No Apparent Distress, WD/WN Neck: Full Range of Motion, Normal Inspection Respiratory: No Accessory Muscle Use, No Respiratory Distress Cardiovascular: Regular Rate, Rhythm, Normal Peripheral Pulses, Other (His initial heart rate was about 108 which reduced down to 88 over the course of just a few minutes without any treatment) Gastrointestinal: Non Tender, Soft Extremity: Normal Capillary Refill, Normal Inspection Neurologic/Psychiatric: Alert, Oriented x3 Skin: Normal Color, Warm/Dry Progress/Results/Core Measures Results/Orders Lab Results Laboratory Tests Test 12/07/20 15:36 Range/Units White Blood Count 6.3 4.3-11.0 10^3/uL Red Blood Count 4.99 4.30-5.52 10^6/uL Hemoglobin 14.8 13.3-17.7 g/dL Hematocrit 42 40-54 % Mean Corpuscular Volume 85 80-99 fL Mean Corpuscular Hemoglobin 30 25-34 pg Mean Corpuscular Hemoglobin Concent 35 32-36 g/dL Red Cell Distribution Width 11.9 10.0-14.5 % Platelet Count 320 130-400 10^3/uL Mean Platelet Volume 9.6 9.0-12.2 fL Immature Granulocyte % (Auto) 0 % Neutrophils (%) (Auto) 48 42-75 % Lymphocytes (%) (Auto) 42 12-44 % Monocytes (%) (Auto) 5 0-12 % Eosinophils (%) (Auto) 4 0-10 % Basophils (%) (Auto) 1 0-10 % Neutrophils # (Auto) 3.0 1.8-7.8 X 10^3 Lymphocytes # (Auto) 2.7 1.0-4.0 X 10^3 Monocytes # (Auto) 0.3 0.0-1.0 X 10^3 Eosinophils # (Auto) 0.2 0.0-0.3 10^3/uL Basophils # (Auto) 0.0 0.0-0.1 10^3/uL Immature Granulocyte # (Auto) 0.0 0.0-0.1 10^3/uL D-Dimer < 0.27 0.00-0.49 UG/ML Sodium Level 142 135-145 MMOL/L Potassium Level 3.9 3.6-5.0 MMOL/L Chloride Level 105 98-107 MMOL/L Carbon Dioxide Level 27 21-32 MMOL/L Anion Gap 10 5-14 MMOL/L Blood Urea Nitrogen 12 7-18 MG/DL Creatinine 0.94 0.60-1.30 MG/DL Estimat Glomerular Filtration Rate > 60 BUN/Creatinine Ratio 13 Glucose Level 86 70-105 MG/DL Calcium Level 9.0 8.5-10.1 MG/DL Corrected Calcium 8.5-10.1 MG/DL Total Bilirubin 0.7 0.1-1.0 MG/DL Aspartate Amino Transf (AST/SGOT) 15 5-34 U/L Alanine Aminotransferase (ALT/SGPT) 20 0-55 U/L Alkaline Phosphatase 73 40-136 U/L Troponin I < 0.028 <0.028 NG/ML C-Reactive Protein High Sensitivity 0.03 0.00-0.50 MG/DL Total Protein 7.6 6.4-8.2 GM/DL Albumin 4.8 H 3.2-4.5 GM/DL Thyroid Stimulating Hormone (TSH) 0.80 0.35-4.94 UIU/ML Free Thyroxine 1.12 0.70-1.48 NG/DL My Orders Orders - DAWSON GÓMEZ [employer] ARCHITECT Cbc With Automated Diff (12/07/20 15:28) Comprehensive Metabolic Panel (12/07/20 15:28) Fibrin Degradation Products (12/07/20 15:28) Chest 1 View, Ap/Pa Only (12/07/20 15:28) Thyroid Stimulating Hormone (12/07/20 15:28) Free T4 (Free Thyroxine) (12/07/20 15:28) Ekg Tracing (12/07/20 15:28) Troponin I (12/07/20 15:28) Hs C Reactive Protein (12/07/20 15:28) Ed Iv/Invasive Line Start (12/07/20 15:28) Ketorolac Injection (Toradol Injection) (12/07/20 15:30) Medications Given in ED Current Medications Medications Dose Ordered Sig/Amanda Route Start Time Stop Time Status Last Admin Dose Admin Ketorolac Tromethamine 15 mg ONCE ONCE IVP 12/07/20 15:30 12/07/20 15:31 DC 12/07/20 15:40 15 MG Vital Signs/I&O 12/07/20 15:23 Temp 36.5 Pulse 93 Resp 14 B/P (MAP) 135/87 (103) Pulse Ox 99 O2 Delivery Room Air Departure Impression Primary Impression: History of tachycardia Disposition: 01 HOME, SELF-CARE Condition: Stable Departure-Patient Inst. Decision time for Depature: 16:25 Referrals: ZULEIKA YEPEZ DO (PCP/Family) Primary Care Physician Patient Instructions: Sinus Tachycardia (DC) Add. Discharge Instructions: 1. Call one of the cardiologists listed to make an appointment to be seen. Return to Er for any concerns Copy Copies To 1: ZULEIKA YEPEZ PETER J APRN Dec 07, 2020 15:33
[2020-12-07 15:45] LABS: BASOPHILS % (AUTO) 1 % (0-10); EOSINOPHILS # (AUTO) 0.2 10^3/uL (0.0-0.3); EOSINOPHILS % (AUTO) 4 % (0-10); HEMATOCRIT 42 % (40-54); HEMOGLOBIN 14.8 g/dL (13.3-17.7); LYMPHOCYTES # (AUTO) 2.7 X 10^3 (1.0-4.0); LYMPHOCYTES % (AUTO) 42 % (12-44); MEAN CORPUSCULAR HEMOGLOBIN 30 pg (25-34); MEAN CORPUSCULAR HGB CONC 35 g/dL (32-36); MEAN CORPUSCULAR VOLUME 85 fL (80-99); MEAN PLATELET VOLUME 9.6 fL (9.0-12.2); MONOCYTES # (AUTO) 0.3 X 10^3 (0.0-1.0); MONOCYTES % (AUTO) 5 % (0-12); NEUTROPHILS % (AUTO) 48 % (42-75); PLATELET COUNT 320 10^3/uL (130-400); WHITE BLOOD COUNT 6.3 10^3/uL (4.3-11.0)
[2020-12-07 15:52] LABS: ALBUMIN 4.8 GM/DL (3.2-4.5); CHLORIDE 105 MMOL/L (98-107); POTASSIUM 3.9 MMOL/L (3.6-5.0); SODIUM 142 MMOL/L (135-145)
[2020-12-07 15:55] LABS: GLUCOSE 86 MG/DL (70-105); TOTAL PROTEIN 7.6 GM/DL (6.4-8.2)
[2020-12-07 15:56] LABS: BILIRUBIN,TOTAL 0.7 MG/DL (0.1-1.0); CARBON DIOXIDE 27 MMOL/L (21-32)
[2020-12-07 15:58] LABS: ALKALINE PHOSPHATASE 73 U/L (40-136); CREATININE SERUM 0.94 MG/DL (0.60-1.30); GFR ESTIMATED > 60
[2020-12-07 16:00] LABS: BUN/CREATININE RATIO 13
[2020-12-07 16:01] LABS: ALANINE AMINOTRANSFERASE 20 U/L (0-55)
[2020-12-07 16:21] LABS: FREE T4 (FREE THYROXINE) 1.12 NG/DL (0.70-1.48)
--- NOTE | 2020-12-07 16:27 | Diagnostic Imaging Report ---
INDICATION: Chest pain. FINDINGS: Portable chest. The lungs well aerated and clear. The heart is not enlarged. No pulmonary edema or hilar adenopathy. No pneumothorax or pleural effusion. No bony abnormalities. IMPRESSION: Normal portable chest. Dictated by: Dictated on workstation # [id number]
[2020-12-07 16:47] VITALS: BP 113/82
== END 2020-12-07 16:48 | disposition home or self-care (01) ==
LOC: EDUNIT# 15:18 → ER 15:21
DX: R00.0 Tachycardia, unspecified (principal); K21.9 Gastro-esophageal reflux disease without esophagitis
CPT/HCPCS: 36415; 71045; 80053; 84439; 84443; 84484; 85025; 85379; 86141; 93005

== ENCOUNTER → 2021-02-06 | Outpatient (CLI) | payer BC | LOC: CARD 12:31 | PROVIDERS: ATTEND Internal Medicine Cardiovascular Disease | DX: R07.89 Other chest pain (principal); R00.2 Palpitations | CPT/HCPCS: 93225; 93226; 93306; 93351 ==

== ENCOUNTER → 2021-03-07 | Outpatient (CLI) | payer BC ==
[2021-03-07 17:09] LABS: BASOPHILS # (AUTO) 0.1 10^3/uL (0.0-0.1); BASOPHILS % (AUTO) 1 % (0-10); EOSINOPHILS # (AUTO) 0.2 10^3/uL (0.0-0.3); EOSINOPHILS % (AUTO) 3 % (0-10); HEMATOCRIT 40 % (40-54); LYMPHOCYTES # (AUTO) 3.2 10^3/uL (1.0-4.0); LYMPHOCYTES % (AUTO) 47 % (12-44); MEAN CORPUSCULAR HEMOGLOBIN 30 pg (25-34); MEAN CORPUSCULAR HGB CONC 35 g/dL (32-36); MEAN CORPUSCULAR VOLUME 85 fL (80-99); MEAN PLATELET VOLUME 10.3 fL (9.0-12.2); MONOCYTES # (AUTO) 0.4 10^3/uL (0.0-1.0); MONOCYTES % (AUTO) 6 % (0-12); NEUTROPHILS # (AUTO) 2.9 10^3/uL (1.8-7.8); NEUTROPHILS % (AUTO) 43 % (42-75); PLATELET COUNT 311 10^3/uL (130-400); WHITE BLOOD COUNT 6.7 10^3/uL (4.3-11.0)
[2021-03-07 17:26] LABS: ALBUMIN 4.9 GM/DL (3.2-4.5)
[2021-03-07 17:27] LABS: CHLORIDE 104 MMOL/L (98-107); POTASSIUM 4.1 MMOL/L (3.6-5.0); SODIUM 142 MMOL/L (135-145)
[2021-03-07 17:28] LABS: CALCIUM 10.1 MG/DL (8.5-10.1)
[2021-03-07 17:29] LABS: GLUCOSE 84 MG/DL (70-105); TOTAL PROTEIN 7.6 GM/DL (6.4-8.2)
[2021-03-07 17:30] LABS: CARBON DIOXIDE 31 MMOL/L (21-32)
[2021-03-07 17:31] LABS: BILIRUBIN,TOTAL 0.5 MG/DL (0.1-1.0)
[2021-03-07 17:32] LABS: ALKALINE PHOSPHATASE 75 U/L (40-136)
[2021-03-07 17:33] LABS: CREATININE SERUM 0.87 MG/DL (0.60-1.30); GFR ESTIMATED > 60
[2021-03-07 17:34] LABS: BUN/CREATININE RATIO 20
[2021-03-07 17:35] LABS: ALANINE AMINOTRANSFERASE 19 U/L (0-55)
[2021-03-07 17:41] LABS: ERYTHROCYTE SEDIMENTATION RATE 11 MM/HR (0-15)
== END ==
LOC: LAB 16:37
PROVIDERS: ATTEND Internal Medicine Cardiovascular Disease
DX: R00.2 Palpitations (principal)
CPT/HCPCS: 36415; 80053; 84443; 85025; 85652

== ENCOUNTER 2021-04-09 09:00 | Outpatient (RCR) | payer BC ==
[2021-04-12] MEDS ORDERED: TRAM50TA3 PO (09:03)
[2021-04-12] MEDS ORDERED: NF-COLE1GM PO (09:03)
[2021-04-12] MEDS ORDERED: MTP25TSR PO (09:03)
[2021-04-12] MEDS ORDERED: FAMO40TA72 PO (09:03)
[2021-06-29] MEDS ORDERED: ACHD5005 PO (02:09)
[2021-06-29] MEDS ORDERED: ONDA4TAB11 PO (02:09)
[2021-06-29] MEDS ORDERED: SUCR1TAB PO (02:09)
[2021-07-05] MEDS ORDERED: HYOS-19 SL (12:59)
[2021-07-05] MEDS ORDERED: BUSP10TA95 PO (12:59)
[2021-07-05] MEDS ORDERED: DULO30CA49 PO (12:59)
[2021-07-05] MEDS ORDERED: FLUO40CA PO (12:59)
== END 2021-07-08 | disposition home or self-care (01) ==
LOC: CARD 09:00
PROVIDERS: ATTEND Nurse Practitioner Family
DX: R00.2 Palpitations (principal)
CPT/HCPCS: 93270

== ENCOUNTER 2021-04-16 05:30 | Outpatient (RCR) | payer BC ==
[~2021-04-16] VITALS: Ht 157.5 cm; Wt 71.8 kg
[~2021-04-16 05:30] MED LIST changes: +FAMO40TA72 PO; +MTP25TSR PO; +TRAM50TA3 PO
== END 2021-04-16 09:11 | disposition home or self-care (01) ==
LOC: PREOP 05:30
PROVIDERS: ATTEND Surgery
DX: Z01.812 Encounter for preprocedural laboratory examination (principal); R13.10 Dysphagia, unspecified; Z20.822 Contact with and (suspected) exposure to COVID-19
CPT/HCPCS: 87635

== ENCOUNTER 2021-04-18 11:49 | Day surgery (SDC) | payer BC ==
[~2021-04-18] VITALS: Ht 158 cm; Wt 72.0 kg
[2021-04-18] VITALS (8 sets, daily range): BP systolic 108–125; BP diastolic 2–86
[2021-04-18] MEDS ORDERED: LACTATED RINGERS 1,000 ML IV STA (11:51)
[2021-04-18] MEDS ORDERED: LACTATED RINGERS 1,000 ML IV ONE (11:58)
[2021-04-18] MEDS ORDERED: LIDOCAINE JELLY 2% 6 ML SYRINGE MM PRN (12:00)
[2021-04-18] MEDS ORDERED: HURRICAINE EXT TUBE (BENZOCAINE) XX PRN (12:00)
--- NOTE | 2021-04-18 12:06 | Progress Note-Pre Operative ---
Pre-Operative Progress Note H&P Reviewed The H&P was reviewed, patient examined and no changes noted. Date Seen by Provider: Apr 18, 2021 Time Seen by Provider: 12:00 Date H&P Reviewed: Apr 18, 2021 Time H&P Reviewed: 12:00 Pre-Operative Diagnosis: dysphagia BAO WEINSTEIN MD Apr 18, 2021 12:06
--- NOTE | 2021-04-18 12:08 | Discharge Inst-Surgical ---
D/C Lap Instructions-CORINNA Follow Up Appt in 2 weeks Activity as tolerated High Fiber Diet 25g or more per day Avoid Alcohol, Caffeine, Spicy Garwood and Acid foods. Drink 64 fluid oz or more of fluids per day. Symptoms to Report: Fever over 101 degree F, Nausea/Vomiting If any problems/questions: Contact your physician or go to Emergency Room BAO WEINSTEIN MD Apr 18, 2021 12:08
[2021-04-18] MEDS ORDERED: HYDROcodone/APAP 5 MG/325 MG (LORTAB) TAB PO PRN (12:15)
[2021-04-18] MEDS ORDERED: ONDANSETRON 4 MG/2 ML (SDV) Z0FRAN IVP PRN (12:15)
[2021-04-18] MEDS ORDERED: morphine INJ 10 MG/ML 1ML (SYR OR VIAL) IVP PRN ×2 (12:15)
[2021-04-18] MEDS ORDERED: ACETAMINOPHEN 325 MG TABLET PO PRN (12:15)
[2021-04-18] MEDS ORDERED: proPOfol 200 MG/20 ML (DIPRIVAN) VIAL IV ONE (14:03)
[2021-04-18] MEDS ORDERED: MIDAZOLAM 2 MG/2 ML (VERSED) VIAL ONE (14:03)
--- NOTE | 2021-04-18 14:43 | Anesthesia-General Post-Op ---
MAC Patient Condition Mental Status/LOC: Same as Preop Cardiovascular: Satisfactory Nausea/Vomiting: Absent Respiratory: Satisfactory Pain: Controlled Complications: Absent Post Op Complications Complications None Follow Up Care/Instructions Patient Instructions None needed. Anesthesiology Discharge Order Discharge Order Patient is doing well, no complaints, stable vital signs, no apparent adverse anesthesia problems. No complications reported per nursing. MANUEL HORVATH CRNA Apr 18, 2021 14:43
--- NOTE | 2021-04-18 15:36 | Progress Note-Post Operative ---
Post-Operative Progess Note Surgeon (s)/Cadd Drafter (s) Surgeon BAO WEINSTEIN MD Cadd Drafter: none Pre-Operative Diagnosis dysphagia Post-Operative Diagnosis reflux esophagitis(stage 2), mild dist esoph stricture, intact wrap and no recurrent HH. mild-moderate gastritis. Procedure & Operative Findings Date of Procedure 04/18/21 Procedure Performed/Findings EGD with bx and balloon dilatation. Anesthesia Type mac Estimated Blood Loss Estimated blood loss (mL): minimal Specimens/Packing Specimens Removed ge jxn, antrum BAO WEINSTEIN MD Apr 18, 2021 15:36
--- NOTE | 2021-04-18 17:52 | OPERATIVE REPORT ---
DATE OF SERVICE: 04/18/2021 ATTENDING PRIMARY CARE PHYSICIAN: Salma Yepez DO. PREOPERATIVE DIAGNOSIS: Dysphagia, status post hiatal hernia repair and Andreea fundoplication. POSTOPERATIVE DIAGNOSES: Reflux esophagitis stage II mild, distal esophageal stricture, intact previous wrap, no recurrent hiatal hernia, mild to moderate gastritis and no distal obstructions. PROCEDURES PERFORMED: EGD with biopsy and balloon dilatation. SURGEON: Bao Weinstein MD. ANESTHESIA: Monitored anesthesia care. ESTIMATED BLOOD LOSS: Minimal. FINDINGS: Reflux esophagitis stage II mild, distal esophageal stricture, intact previous wrap, no recurrent hiatal hernia, mild to moderate gastritis and no distal obstructions. DISPOSITION: The patient tolerated the procedure well. INDICATIONS FOR PROCEDURE: The patient is a 25-year-old male known to us. He has had multiple gastrointestinal issues. He had significant reflux and was found to have a significant size hiatal hernia, which was a type 1 sliding type. He then underwent a manometry, which showed a shortened lower esophageal sphincter with normal peristaltic contractions and on 06/29/2020 underwent a laparoscopic hiatal hernia repair as well as a Andreea fundoplication. Since that time, he is doing well from a reflux standpoint; however, has progressively developed dysphagia for some types of foods. He does not report any hematemesis, no coffee ground emesis. DESCRIPTION OF PROCEDURE: The patient was brought to the endoscopy suite and laid in the left lateral decubitus position with the head slightly elevated. After adequate IV pain and sedative medications and monitored anesthesia care, the mouthpiece was applied. The endoscope was placed in the mouth, visualizing the pharynx and hypopharyngeal region. Vocal cords, epiglottis and vallecula were identified and appeared to be normal. The endoscope was then gently intubated into the esophageal opening and esophagus insufflated. The endoscope was then advanced through the first, second and third portion of the esophagus. At the level of the GE junction, a reflux esophagitis stage II identified. There was also a mild stricture, likely secondary from the previous wrap. A biopsy was taken of the forceps with visualization of good hemostasis. The endoscope was then advanced in the stomach and endoscope retroflexed visualizing an intact previous hiatal hernia repair as well as a Andreea fundoplication. There was a mild to moderate gastritis. No formal ulcerations, polyps or any neoplasms. A biopsy was taken of the antrum to rule out H. pylori with visualization of good hemostasis. The endoscope was then advanced through the pylorus and the first and second portion of the duodenum, which appeared normal with no distal obstructions. We then proceeded with balloon dilatation of the distal esophageal stricture and the balloon was placed in the stomach and pulled back the area of the stricture. We then proceeded in a systematic fashion from 2, to 4, then 6 atmospheres of pressure for 20 mm in luminal diameter with moderate resistance and left this in place for 60 seconds. The balloon was then desufflated and removed with visualization of good hemostasis as well as no mucosal tears. Endoscope was then slowly withdrawn while taking a second look and suctioning of residual air with no additional findings. The patient tolerated the procedure well. We will recommend continued medical management with small more frequent meals, avoidance of eating at night as well as head elevation while lying supine. 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 Job ID: [id number] DocumentID: [id number] Dictated Date: 04/18/2021 14:42:35 Bottom Loader Date: 04/18/2021 17:51:51 Dictated By: BAO WEINSTEIN MD
== END 2021-04-18 15:20 | disposition home or self-care (01) ==
LOC: ENDO 11:49
PROVIDERS: ATTEND Surgery
DX: K21.00 Gastro-esophageal reflux disease with esophagitis, without bleeding (principal); K22.2 Esophageal obstruction; K29.50 Unspecified chronic gastritis without bleeding; K21.9 Gastro-esophageal reflux disease without esophagitis; Z79.899 Other long term (current) drug therapy; Z98.890 Other specified postprocedural states; Z79.891 Long term (current) use of opiate analgesic; Z90.49 Acquired absence of other specified parts of digestive tract; Z83.3 Family history of diabetes mellitus; Z82.49 Family history of ischemic heart disease and other diseases of the circulatory system

== ENCOUNTER → 2021-05-09 | Outpatient (CLI) | payer BC ==
[2021-05-09 16:37] LABS: FREE T4 (FREE THYROXINE) 1.09 NG/DL (0.70-1.48)
== END ==
LOC: LAB 15:41
PROVIDERS: ATTEND Family Medicine
DX: F32.9 Major depressive disorder, single episode, unspecified (principal); R26.89 Other abnormalities of gait and mobility; R00.1 Bradycardia, unspecified; R53.83 Other fatigue
CPT/HCPCS: 36415; 84439; 84443

== ENCOUNTER 2021-06-28 23:30 | Emergency (ER) | payer BC ==
[~2021-06-28] VITALS: Ht 162.5 cm; Wt 65.0 kg
[2021-06-29 00:07] LABS: BASOPHILS # (AUTO) 0.1 10^3/uL (0.0-0.1); BASOPHILS % (AUTO) 1 % (0-10); EOSINOPHILS # (AUTO) 0.2 10^3/uL (0.0-0.3); EOSINOPHILS % (AUTO) 2 % (0-10); HEMATOCRIT 40 % (40-54); LYMPHOCYTES # (AUTO) 3.2 10^3/uL (1.0-4.0); LYMPHOCYTES % (AUTO) 38 % (12-44); MEAN CORPUSCULAR HEMOGLOBIN 30 pg (25-34); MEAN CORPUSCULAR HGB CONC 35 g/dL (32-36); MEAN CORPUSCULAR VOLUME 86 fL (80-99); MEAN PLATELET VOLUME 9.8 fL (9.0-12.2); MONOCYTES # (AUTO) 0.6 10^3/uL (0.0-1.0); MONOCYTES % (AUTO) 7 % (0-12); NEUTROPHILS # (AUTO) 4.4 10^3/uL (1.8-7.8); NEUTROPHILS % (AUTO) 52 % (42-75); PLATELET COUNT 297 10^3/uL (130-400); WHITE BLOOD COUNT 8.4 10^3/uL (4.3-11.0)
[2021-06-29 00:13] LABS: ALBUMIN 4.6 GM/DL (3.2-4.5); CHLORIDE 102 MMOL/L (98-107); SODIUM 139 MMOL/L (135-145)
[2021-06-29 00:15] LABS: CALCIUM 9.5 MG/DL (8.5-10.1)
[2021-06-29 00:16] LABS: GLUCOSE 90 MG/DL (70-105); TOTAL PROTEIN 7.8 GM/DL (6.4-8.2)
[2021-06-29 00:17] LABS: CARBON DIOXIDE 25 MMOL/L (21-32)
[2021-06-29 00:18] LABS: BILIRUBIN,TOTAL 0.3 MG/DL (0.1-1.0)
[2021-06-29 00:19] LABS: ALKALINE PHOSPHATASE 78 U/L (40-136)
[2021-06-29 00:20] LABS: CREATININE SERUM 0.93 MG/DL (0.60-1.30); GFR ESTIMATED 100
[2021-06-29 00:21] LABS: BUN/CREATININE RATIO 15
[2021-06-29 00:22] LABS: ALANINE AMINOTRANSFERASE 16 U/L (0-55)
[2021-06-29 00:26] LABS: PROTHROMBIN TIME PATIENT 13.3 SEC (12.2-14.7)
--- NOTE | 2021-06-29 01:00 | ED GI ---
General Chief Complaint: Abdominal/GI Problems Stated Complaint: BLOOD IN STOOL Nursing Triage Note: Pt ambulatory into ER with complaint of blood in stool tonight. pt states that this has been happening off and on for a while. Tonight, blood was bright red. Pt states that he has been told that he might have a hemhoroid, but that hasn't been confirmed. Source of Information: Patient Exam Limitations: No Limitations History of Present Illness Date Seen by Provider: Jun 29, 2021 Time Seen by Provider: 00:14 Initial Comments Patient presents ER by private conveyance with chief complaint of 1 day of dark red stools. He typically has bright red bloody stools for the past 6 months which did not bother him. He is having some generalized abdominal achiness. He has a history of stomach wrap, gastritis, esophagitis, esophageal strictures and has had a gastric perforation in the past. He is known to Dr. Borrero, general surgery locally. He sees Dr. SINCLAIR for primary care. He has been vomiting today and has nausea. He has also been experiencing a lot of constipation. He takes ibuprofen 800 mg 3 times a day for his stomach pain in addition to tramadol. He is also on Carafate and a PPI. Allergies and Home Medications Allergies Coded Allergies: No Known Drug Allergies (Verified , 04/18/21) Patient Home Medication List Home Medication List Reviewed: Yes Colestipol HCl (Colestid) 1 Gm Tab, 1 GM PO DAILY, (Reported) Entered as Reported by: MIREYA KENNEDY on 04/12/21 0903 Dicyclomine HCl (Dicyclomine HCl) 10 Mg Capsule, 10 MG PO QID, (Reported) Entered as Reported by: ELKE SUTHERLAND on 05/15/20 1148 Famotidine (Pepcid) 40 Mg Tablet, 40 MG PO DAILY, (Reported) Entered as Reported by: MIREYA KENNEDY on 04/12/21 0903 Hydrocodone/Acetaminophen (Hydrocodone-Acetamin 5-325 mg) 1 Each Tablet, 1 TAB PO Q6H PRN for PAIN-MODERATE (5-7) Prescribed by: SUZIE ALCALA on 06/29/21 0209 Metoprolol Succinate (Metoprolol Succinate) 25 Mg Tab.er.24h, 25 MG PO DAILY, (Reported) Entered as Reported by: MIREYA KENNEDY on 04/12/21902 Ondansetron (Ondansetron Odt) 4 Mg Tab.rapdis, 4 MG PO Q6H Prescribed by: TRELL RAMÍREZ on 06/29/20 0943 Ondansetron (Ondansetron Odt) 4 Mg Tab.rapdis, 4 MG PO Q6H PRN for NAUSEA/VOMITING Prescribed by: SUZIE ALCAAL on 06/29/21 020 Ondansetron HCl (Ondansetron HCl) 4 Mg Tablet, 4 MG PO Q6H PRN for NAUSEA/VOMITING, (Reported) Entered as Reported by: ELKE SUTHERLAND on 05/15/20 1148 Pantoprazole Sodium (Protonix) 40 Mg Tablet.dr, 40 MG PO DAILY, (Reported) Entered as Reported by: ELKE SUTHERLAND on 01/05/20 1545 Sucralfate (Sucralfate) 1 Gm Tablet, 1 GM PO ACHS, (Reported) Entered as Reported by: ELKE SUTHERLAND on 05/15/20 1148 Sucralfate (Sucralfate) 1 Gm Tablet, 1 GM PO ACHS Prescribed by: SUZIE ALCALA on 06/29/21 020 Tramadol HCl (Tramadol HCl) 50 Mg Tablet, 50 MG PO UD, (Reported) Entered as Reported by: MIREYA KENNEDY on 04/12/21902 Review of Systems Review of Systems Constitutional: No chills, No fever EENTM: No Blurred Vision, No Double Vision Respiratory: Denies Cough, Denies Shortness of Air Cardiovascular: Denies Chest Pain, Denies Lightheadedness Gastrointestinal: See HPI, Abdominal Pain, Constipated, Nausea Genitourinary: Denies Burning, Denies Discharge Musculoskeletal: No back pain, No joint pain All Other Systems Reviewed Negative Unless Noted: Yes Past Qgadsde-Xlctro-Ozuuii Hx Patient Social History Tobacco Use?: No Use of E-Cig and/or Vaping dev: No Substance use?: No Alcohol Use?: No Pt feels they are or have been: No Immunizations Up To Date Tetanus Booster (TDap): Less than 5yrs PED Vaccines UTD: No Influenza Vaccine Up-to-Date: No; Not Current First/Initial COVID19 Vaccinat: february 2021 Second COVID19 Vaccination Perez: to be done 04/18/21 COVID19 Vaccine Executive Account Manager: Carl Seasonal Allergies Seasonal Allergies: No Past Medical History Surgeries: Yes (NOSE BLEED) Abdominal, Gallbladder Respiratory: No Currently Using CPAP: No Currently Using BIPAP: No Cardiac: No Neurological: No Reproductive Disorders: No Sexually Transmitted Disease: No HIV/AIDS: No Genitourinary: No Gastrointestinal: Yes (nausea) Gastroesophageal Reflux, Chronic Diarrhea, Irritable Bowel Musculoskeletal: No Endocrine: No HEENT: Yes (epitaxis) Hearing Impairment: Denies Cancer: No Psychosocial: No Integumentary: No Blood Disorders: No Adverse Reaction/Blood Tranf: No (N/A) Physical Exam Vital Signs Vital Signs - First Documented 06/28/21 23:47 Temp 36.7 Pulse 85 Resp 16 B/P (MAP) 97/ Pulse Ox 97 O2 Delivery Room Air Capillary Refill : Less Than 3 Seconds Height/Weight/BMI Height: 5'5.00" Weight: 120lbs. 0.0oz. 54.739270um; 24.00 BMI Method:Estimated General Appearance: WD/WN, no apparent distress HEENT: PERRL/EOMI, pharynx normal Neck: full range of motion, normal inspection Respiratory: lungs clear, normal breath sounds, no respiratory distress, no accessory muscle use Cardiovascular: normal peripheral pulses, regular rate, rhythm Gastrointestinal: normal bowel sounds, non tender, soft, no organomegaly Extremities: normal range of motion, normal capillary refill Neurologic/Psychiatric: alert, normal mood/affect, oriented x 3 Skin: normal color, warm/dry Progress/Results/Core Measures Results/Orders Lab Results Laboratory Tests Test 06/29/21 00:01 Range/Units White Blood Count 8.4 4.3-11.0 10^3/uL Red Blood Count 4.66 4.30-5.52 10^6/uL Hemoglobin 14.0 13.3-17.7 g/dL Hematocrit 40 40-54 % Mean Corpuscular Volume 86 80-99 fL Mean Corpuscular Hemoglobin 30 25-34 pg Mean Corpuscular Hemoglobin Concent 35 32-36 g/dL Red Cell Distribution Width 11.7 10.0-14.5 % Platelet Count 297 130-400 10^3/uL Mean Platelet Volume 9.8 9.0-12.2 fL Immature Granulocyte % (Auto) 0 % Neutrophils (%) (Auto) 52 42-75 % Lymphocytes (%) (Auto) 38 12-44 % Monocytes (%) (Auto) 7 0-12 % Eosinophils (%) (Auto) 2 0-10 % Basophils (%) (Auto) 1 0-10 % Neutrophils # (Auto) 4.4 1.8-7.8 10^3/uL Lymphocytes # (Auto) 3.2 1.0-4.0 10^3/uL Monocytes # (Auto) 0.6 0.0-1.0 10^3/uL Eosinophils # (Auto) 0.2 0.0-0.3 10^3/uL Basophils # (Auto) 0.1 0.0-0.1 10^3/uL Immature Granulocyte # (Auto) 0.0 0.0-0.1 10^3/uL Prothrombin Time 13.3 12.2-14.7 SEC INR Comment 1.0 0.8-1.4 Activated Partial Thromboplast Time 30 24-35 SEC Sodium Level 139 135-145 MMOL/L Potassium Level 4.0 3.6-5.0 MMOL/L Chloride Level 102 98-107 MMOL/L Carbon Dioxide Level 25 21-32 MMOL/L Anion Gap 12 5-14 MMOL/L Blood Urea Nitrogen 14 7-18 MG/DL Creatinine 0.93 0.60-1.30 MG/DL Estimat Glomerular Filtration Rate 100 BUN/Creatinine Ratio 15 Glucose Level 90 70-105 MG/DL Calcium Level 9.5 8.5-10.1 MG/DL Corrected Calcium 8.5-10.1 MG/DL Total Bilirubin 0.3 0.1-1.0 MG/DL Aspartate Amino Transf (AST/SGOT) 15 5-34 U/L Alanine Aminotransferase (ALT/SGPT) 16 0-55 U/L Alkaline Phosphatase 78 40-136 U/L Total Protein 7.8 6.4-8.2 GM/DL Albumin 4.6 H 3.2-4.5 GM/DL My Orders Orders - SUZIE ALCALA Occult Blood Stool (06/28/21 23:41) Cbc With Automated Diff (06/28/21 23:41) Comprehensive Metabolic Panel (06/28/21 23:41) Protime With Inr (06/28/21 23:41) Partial Thromboplastin Time (06/28/21 23:41) Lidocaine 2% Viscous 15 Ml (Xylocaine Vi (06/29/21 01:45) Famotidine Tablet (Pepcid Tablet) (06/29/21 01:41) Antacid Suspension (Mylanta Suspension (06/29/21 01:45) Acetaminophen Tablet (Tylenol Tablet) (06/29/21 01:45) Medications Given in ED Current Medications Medications Dose Ordered Sig/Amanda Route Start Time Stop Time Status Last Admin Dose Admin Acetaminophen 1,000 mg ONCE ONCE PO 06/29/21 01:45 06/29/21 01:46 DC 06/29/21 01:51 1,000 MG Al Hydrox/Mg Hydrox/Simethicone 30 ml ONCE ONCE PO 06/29/21 01:45 06/29/21 01:46 DC 06/29/21 01:52 30 ML Lidocaine HCl 15 ml ONCE ONCE PO 06/29/21 01:45 06/29/21 01:46 DC 06/29/21 01:52 15 ML Vital Signs/I&O 06/28/21 06/29/21 23:47 02:12 Temp 36.7 36.5 Pulse 85 73 Resp 16 18 B/P (MAP) 97/ 114/78 Pulse Ox 97 98 O2 Delivery Room Air Room Air Progress Progress Note #1: Time: 01:37 Progress Note Positive fecal occult. No mass of the rectal verge. Hemoglobin is okay. We will give him some Tylenol, GI cocktail, Zofran and have him follow-up with Dr. Borrero. I have encouraged him to stop using NSAIDs which she has been using for his headaches as this may have worsened his gastritis. Progress Note #2: Time: 02:06 Progress Note Patient has experienced significant relief from the GI cocktail. He needs a refill on his sucralfate and couple hydrocodone's for his breakthrough severe pain. Follow-up with Dr. Borrero Departure Impression Primary Impression: Gastritis Qualified Codes: K29.01 - Acute gastritis with bleeding Additional Impression: Upper GI bleed Disposition: HOME, SELF-CARE Condition: Stable Departure-Patient Inst. Decision time for Depature: 02:06 Referrals: BAO BORRERO MD, JACQUELINE S DO (PCP/Family) Primary Care Physician Patient Instructions: Gastritis (DC) Add. Discharge Instructions: Avoid NSAIDs such as ibuprofen, Aleve, naproxen etc. Tums, Rolaids, Mylanta, Maalox etc. for abdominal pain. If you still have severe abdominal pain you may use your tramadol or the hydrocodone but not both. Sucralfate half an hour before meals and at bedtime for the next 2 weeks. 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 Follow-up with Dr. Borrero by calling for an appointment. All discharge instructions reviewed with patient and/or family. Voiced understanding. Scripts Ondansetron (Ondansetron Odt) 4 Mg Tab.rapdis 4 MG PO Q6H PRN for NAUSEA/VOMITING, #15 TAB 0 Refills Prov: SUZIE ALCALA 06/29/21 Sucralfate (Sucralfate) 1 Gm Tablet 1 GM PO ACHS for 14 Days, #56 TAB 1 Refill Chew tablet to a slurry and then swallow Prov: SUZIE ALCALA 06/29/21 Hydrocodone/Acetaminophen (Hydrocodone-Acetamin 5-325 mg) 1 Each Tablet 1 TAB PO Q6H PRN for PAIN-MODERATE (5-7), #10 TAB 0 Refills Prov: SUZIE ALCALA 06/29/21 Copy Copies To 1: BAO BORRERO MD, TITUS J Jun 29, 2021 01:00
[2021-06-29] MEDS ORDERED: FAMOTIDINE 20 MG (PEPCID) TABLET PO STA (01:41)
[2021-06-29] MEDS ORDERED: ANTACID SUSP 30 ML UDC (MYLANTA) PO ONE (01:45)
[2021-06-29] MEDS ORDERED: LIDOCAINE 2% VISCOUS 15 ML UDC PO ONE (01:45)
[2021-06-29] MEDS ORDERED: ACETAMINOPHEN 500 MG TAB (TYLENOL) PO ONE (01:45)
[2021-06-29] MEDS ORDERED: ONDA4TAB11 PO (02:09)
[2021-06-29] MEDS ORDERED: SUCR1TAB PO (02:09)
[2021-06-29] MEDS ORDERED: ACHD5005 PO (02:09)
[2021-06-29 02:12] VITALS: BP 114/78
== END 2021-06-29 02:15 | disposition home or self-care (01) ==
LOC: EDUNIT# 23:30 → ER 23:34
DX: K29.71 Gastritis, unspecified, with bleeding (principal); K21.9 Gastro-esophageal reflux disease without esophagitis; Z79.899 Other long term (current) drug therapy
CPT/HCPCS: 36415; 80053; 82274; 85025; 85610; 85730

== ENCOUNTER 2021-07-09 05:30 | Outpatient (RCR) | payer BC ==
[~2021-07-09] VITALS: Ht 157.5 cm; Wt 69.0 kg
[~2021-07-09 05:30] MED LIST changes: +BUSP10TA95 PO; +DULO30CA49 PO; +FLUO40CA PO; +HYOS-19 SL
== END 2021-07-09 10:59 | disposition home or self-care (01) ==
LOC: PREOP 05:30
PROVIDERS: ATTEND Surgery
DX: Z01.818 Encounter for other preprocedural examination (principal); R13.10 Dysphagia, unspecified; K92.1 Melena; Z20.822 Contact with and (suspected) exposure to COVID-19
CPT/HCPCS: 87635

== ENCOUNTER 2021-07-11 12:46 | Day surgery (SDC) | payer BC ==
[~2021-07-11] VITALS: Ht 157.5 cm; Wt 69.0 kg
[2021-07-11] MEDS ORDERED: LACTATED RINGERS 1,000 ML IV STA (13:19)
[2021-07-11] MEDS ORDERED: proPOfol 200 MG/20 ML (DIPRIVAN) VIAL IV ONE ×3 (13:21→14:45)
[2021-07-11] MEDS ORDERED: MIDAZOLAM 2 MG/2 ML (VERSED) VIAL ONE (13:21)
[2021-07-11] MEDS ORDERED: LIDOCAINE JELLY 2% 6 ML SYRINGE MM PRN (13:30)
[2021-07-11] MEDS ORDERED: HURRICAINE EXT TUBE (BENZOCAINE) XX PRN (13:30)
[2021-07-11] MEDS ORDERED: LIDOCAINE JELLY 2% 6 ML SYRINGE ONE (13:39)
--- NOTE | 2021-07-11 13:42 | Progress Note-Pre Operative ---
Pre-Operative Progress Note H&P Reviewed The H&P was reviewed, patient examined and no changes noted. Date Seen by Provider: Jul 11, 2021 Time Seen by Provider: 13:00 Date H&P Reviewed: Jul 11, 2021 Time H&P Reviewed: 13:00 Pre-Operative Diagnosis: dysphagia BAO WEINSTEIN MD Jul 11, 2021 13:42
--- NOTE | 2021-07-11 13:43 | Discharge Inst-Surgical ---
D/C Lap Instructions-CORINNA Follow Up Appt in 6 weeks Activity as tolerated High Fiber Diet 25g or more per day Avoid Alcohol, Caffeine, Spicy Hazel and Acid foods. Drink 64 fluid oz or more of fluids per day. Symptoms to Report: Fever over 101 degree F, Nausea/Vomiting If any problems/questions: Contact your physician or go to Emergency Room BAO WEINSTEIN MD Jul 11, 2021 13:43
[2021-07-11] MEDS ORDERED: ONDANSETRON 4 MG/2 ML (SDV) Z0FRAN IVP PRN (13:45)
[2021-07-11] MEDS ORDERED: ONDANSETRON 4 MG (ZOFRAN) ORAL DISSOLVE TAB PO PRN (13:45)
[2021-07-11 14:50] VITALS: BP 115/79
[2021-07-11 15:00] VITALS: BP 105/55
[2021-07-11 15:05] VITALS: BP 96/59
[2021-07-11 15:10] VITALS: BP 96/65
[2021-07-11 15:15] VITALS: BP 96/65
--- NOTE | 2021-07-11 15:21 | Progress Note-Post Operative ---
Post-Operative Progess Note Surgeon (s)/Extraction Machine Operator (s) Surgeon BAO WEINSTEIN MD Extraction Machine Operator: none Pre-Operative Diagnosis dysphagia Post-Operative Diagnosis reflux esophagitis(stage 2), mild distal esophageal stricture, mild-mod gastritis. chronic stage 2 ext and int hemorrhoids. Procedure & Operative Findings Date of Procedure 07/11/21 Procedure Performed/Findings EGD with bx and balloon dilatation. colonoscopy Anesthesia Type mac Estimated Blood Loss Estimated blood loss (mL): minimal Specimens/Packing Specimens Removed ge jxn, antrum BAO WEINSTEIN MD Jul 11, 2021 15:21
[2021-07-11 15:45] VITALS: BP 105/67
--- NOTE | 2021-07-12 00:08 | OPERATIVE REPORT ---
DATE OF SERVICE: 07/11/2021 ATTENDING PRIMARY CARE PHYSICIAN: Salma Yepez DO. PREOPERATIVE DIAGNOSES: Dysphagia, status post hiatal hernia repair and Andreea fundoplication, hemoccult positive stools. POSTOPERATIVE DIAGNOSES: Reflux esophagitis stage II, mild distal esophageal stricture, intact previous hiatal hernia repair as well as wrap, mild gastritis, chronic stage II external and internal hemorrhoids. PROCEDURE: EGD with biopsy and balloon dilatation, colonoscopy. SURGEON: Bao Weinstein MD. ANESTHESIA: Monitored anesthesia care. ESTIMATED BLOOD LOSS: Minimal. FINDINGS: Reflux esophagitis stage II, mild distal esophageal stricture, intact previous hiatal hernia repair as well as wrap, mild gastritis, chronic stage II external and internal hemorrhoids. DISPOSITION: The patient tolerated the procedure well. INDICATIONS: The patient is a 25-year-old male known to us. He has had multiple different gastrointestinal issues at different times. He had reported nausea after eating meals and he underwent a laparoscopic cholecystectomy. He then stated having reflux type of symptoms. He underwent an EGD and was found to have a moderate size hiatal hernia approximately 2 cm in size. He stated that his reflux symptoms had worsened despite maximal medical therapy and on 06/29/2020, he underwent a hiatal hernia repair as well as a Andreea fundoplication. Since that standpoint, his reflux has done better; however, he has had some issues with dysphagia and underwent an EGD and balloon dilatation on 04/18/2021. He states that he has had recurrence of dysphagia for some types of foods. He also states that a Hemoccult test was done, which was found to be positive. He does not report any anali episodes of red blood per rectum nor any dark tarry stools. He states that he does have more formed stools and only has a bowel movement every other day. DESCRIPTION OF PROCEDURE: The patient was brought to the endoscopy suite, laid in the left lateral decubitus position. After adequate IV pain and sedative medications and monitored anesthesia care, the mouthpiece was applied. The endoscope was placed in the mouth, visualizing the pharynx and hypopharyngeal region. Vocal cords, epiglottis and vallecula identified and appeared to be normal. The endoscope was then gently intubated and esophagus insufflated. The endoscope was then advanced to the first, second and third portion of esophagus at the level of the GE junction. Reflux esophagitis stage II identified. There was a mild distal esophageal stricture. A biopsy was taken of the GE junction with forceps with visualization of good hemostasis. The endoscope was then advanced in the stomach and endoscope retroflexed visualizing intact previous hiatal hernia repair as well as Andreea fundoplication and no recurrent hiatal hernia. There was a rdoc-wc-vjaktaar gastritis. No formal ulcerations, polyps, or any neoplasms. A biopsy was taken of the antrum to rule out H. pylori. The endoscope was then advanced to the pylorus and the first and second portion of the duodenum, which appeared normal with no distal obstructions. The balloon was then placed in the stomach and pulled back to the area of stricture. We then proceeded with dilatation from 2, 4, then 6 atmospheres of pressure or 20 mm in luminal diameter with moderate resistance and left this in place for approximately 60 seconds. The balloon was then desufflated and removed with visualization of good hemostasis as well as no mucosal tears. The endoscope was then slowly withdrawn while taking a second look and suctioning of residual air with no additional findings. A digital rectal examination was performed, which revealed chronic stage II external and internal hemorrhoids with mild edema, no active bleeding. Normal sphincter tone was felt and there were no palpable masses. Prostate gland was palpable and appeared normal. The endoscope was then intubated and anus and rectum gently insufflated. The endoscope was then advanced through the valves of Hoover of the rectum with no polyps or any neoplasms identified. We then proceeded through the sigmoid colon where no diverticulosis identified. The endoscope was then advanced to the remainder of the descending, transverse and ascending colon to the cecum, which were normal. No polyps or any neoplasms identified. The endoscope was then slowly withdrawn while taking a second look and suctioning of residual air with no additional findings. The patient tolerated the procedure well. We will recommend the necessary lifestyle and diet accommodation including small and more frequent meals, avoiding to eating at night as well as head elevation while lying supine. We were able to dilate the esophagus at 20 mm. We will recommend chewing thoroughly and eating slowly. He also appears to have constipation, which does cause mild chronic external and internal hemorrhoids, which is the likely cause of the Hemoccult positive stool and we will recommend the addition of a fiber supplement, which should equal or exceed 30 grams daily as well as significant amounts of water to promote soft stools at least once a day. Job ID: [id number] DocumentID: [id number] Dictated Date: 07/11/2021 15:06:19 Display Maker Date: 07/11/2021 23:38:24 Dictated By: BAO WEINSTEIN MD
--- NOTE | 2021-07-12 07:37 | Anesthesia-General Post-Op ---
MAC Patient Condition Mental Status/LOC: Same as Preop Cardiovascular: Satisfactory Nausea/Vomiting: Absent Respiratory: Satisfactory Pain: Controlled Complications: Absent Post Op Complications Complications None Follow Up Care/Instructions Patient Instructions None needed. Anesthesiology Discharge Order Discharge Order Patient is doing well, no complaints, stable vital signs, no apparent adverse anesthesia problems. No complications reported per nursing. MIRIAM ZHONG CRNA Jul 12, 2021 07:37
== END 2021-07-11 16:00 | disposition home or self-care (01) ==
LOC: ENDO 12:46
PROVIDERS: ATTEND Surgery
DX: K21.00 Gastro-esophageal reflux disease with esophagitis, without bleeding (principal); R19.5 Other fecal abnormalities; K22.2 Esophageal obstruction; K64.1 Second degree hemorrhoids; F32.9 Major depressive disorder, single episode, unspecified; F41.9 Anxiety disorder, unspecified; K29.50 Unspecified chronic gastritis without bleeding; Z98.890 Other specified postprocedural states; Z90.49 Acquired absence of other specified parts of digestive tract; Z79.899 Other long term (current) drug therapy; Z79.891 Long term (current) use of opiate analgesic

== ENCOUNTER 2021-09-26 12:47 | Emergency (ER) | payer BC ==
[~2021-09-26] VITALS: Ht 165.1 cm; Wt 69.0 kg
[2021-09-26 12:59] VITALS: BP 102/66
[2021-09-26] MEDS ORDERED: IBUPROFEN 600 MG (MOTRIN) TAB PO ONE (13:15)
--- NOTE | 2021-09-26 13:16 | ED Lower Extremity ---
General Chief Complaint: Lower Extremity Stated Complaint: L FOOT TOE PAIN Nursing Triage Note: EARLY THIS AM DROPPED A PIECE OF METAL ON HIS LEFT FOOT 2ND TOE, APPEARS BRUISED AND PT VERBALIZES 07/29 Source: patient Exam Limitations: no limitations History of Present Illness Date Seen by Provider: Sep 26, 2021 Time Seen by Provider: 12:55 Initial Comments 25-year-old male with past medical history of GERD, anxiety, depression coming in due to left second and third toe pain. He was assisting his father with his wheelchair trying to move it, using some type of T post metal bar to move it, and the full weight of the bar in wheelchair went down on his left barefoot. Had some bruising and swelling. Took ibuprofen 800 mg around 1 AM this morning when this occurred. Pain slightly improved after that, but is worse with movement. Came to see if anything was broken. Is otherwise denying any other acute complaints. Pain is moderate, constant, throbbing, better with rest. Allergies and Home Medications Allergies Coded Allergies: No Known Drug Allergies (Verified , 04/18/21) Patient Home Medication List Home Medication List Reviewed: Yes Buspirone HCl (Buspirone HCl) 10 Mg Tablet, 10 MG PO DAILY, (Reported) Entered as Reported by: MIREYA KENNEDY on 07/05/21 1259 Dicyclomine HCl (Dicyclomine HCl) 10 Mg Capsule, 10 MG PO QID, (Reported) Entered as Reported by: ELKE SUTHERLAND on 05/15/20 1148 Duloxetine HCl (Duloxetine HCl) 30 Mg Capsule.dr, 30 MG PO DAILY, (Reported) Entered as Reported by: MIREYA KENNEDY on 07/05/21 1259 Famotidine (Pepcid) 40 Mg Tablet, 40 MG PO DAILY, (Reported) Entered as Reported by: MIREYA KENNEDY on 04/12/21 0903 Fluoxetine HCl (Fluoxetine HCl) 40 Mg Capsule, 40 MG PO DAILY, (Reported) Entered as Reported by: MIREYA KENNEDY on 07/05/21 1259 Hyoscyamine Sulfate (Hyoscyamine Sulfate) 0.125 Mg Tab.subl, 0.125 MG SL Q6H, (Reported) Entered as Reported by: MIREYA KENNEDY on 07/05/21 1259 Metoprolol Succinate (Metoprolol Succinate) 25 Mg Tab.er.24h, 25 MG PO DAILY, (Reported) Entered as Reported by: MIREYA KENNEDY on 04/12/21 0903 Ondansetron HCl (Ondansetron HCl) 4 Mg Tablet, 4 MG PO Q6H PRN for NAUSEA/ VOMITING, (Reported) Entered as Reported by: ELKE SUTHERLAND on 05/15/20 1148 Pantoprazole Sodium (Protonix) 40 Mg Tablet.dr, 40 MG PO DAILY, (Reported) Entered as Reported by: ELKE SUTHERLAND on 01/05/20 1545 Sucralfate (Sucralfate) 1 Gm Tablet, 1 GM PO ACHS, (Reported) Entered as Reported by: ELKE SUTHERLAND on 05/15/20 1148 Tramadol HCl (Tramadol HCl) 50 Mg Tablet, 50 MG PO UD, (Reported) Entered as Reported by: MIREYA KENNEDY on 04/12/21 0903 Review of Systems Constitutional: No chills, No fever EENTM: No blurred vision Respiratory: No cough Cardiovascular: No chest pain Gastrointestinal: No abdominal pain Genitourinary: no symptoms reported Musculoskeletal: joint pain Skin: no symptoms reported Psychiatric/Neurological: No Symptoms Reported All Other Systems Reviewed Negative Unless Noted: Yes Past Bfqraid-Hdsbvx-Iboszi Hx Patient Social History Substance use?: No Immunizations Up To Date Tetanus Booster (TDap): Less than 5yrs PED Vaccines UTD: No First/Initial COVID19 Vaccinat: 02/2021 Second COVID19 Vaccination Perez: 03/2021 Third COVID19 Vaccination Date: february 2021 Seasonal Allergies Seasonal Allergies: No Past Medical History Surgeries: Yes (NOSE BLEED) Abdominal, Gallbladder Respiratory: No Currently Using CPAP: No Currently Using BIPAP: No Cardiac: No Neurological: No Reproductive Disorders: No Sexually Transmitted Disease: No HIV/AIDS: No Genitourinary: No Gastrointestinal: Yes (nausea) Gastroesophageal Reflux, Chronic Diarrhea, Irritable Bowel Musculoskeletal: No Endocrine: No HEENT: Yes (epitaxis) Hearing Impairment: Denies Cancer: No Psychosocial: No Integumentary: No Blood Disorders: No Adverse Reaction/Blood Tranf: No (N/A) Physical Exam Vital Signs Vital Signs - First Documented 09/26/21 12:59 Temp 36.0 Pulse 70 Resp 18 B/P (MAP) 102/66 (78) Pulse Ox 99 Capillary Refill : Less Than 3 Seconds Height, Weight, BMI Height: 5'5.00" Weight: 120lbs. 0.0oz. 54.922749dk; 25.00 BMI Method:Estimated General Appearance: WD/WN, no apparent distress HEENT: PERRL/EOMI, normal ENT inspection, pharynx normal Neck: non-tender, full range of motion, supple, normal inspection Cardiovascular: regular rate, rhythm, no edema, no murmur Respiratory: chest non-tender, lungs clear, normal breath sounds, no respiratory distress, no accessory muscle use Gastrointestinal: normal bowel sounds, non tender, soft; No distended, No guarding, No rebound Back: normal inspection, no CVA tenderness, no vertebral tenderness Hips: bilateral hip non-tender, bilateral hip normal inspection, bilateral hip normal range of motion, bilateral hip no evidence of injury Legs: bilateral leg non-tender, bilateral leg normal inspection, bilateral leg normal range of motion, bilateral leg no evidence of injury Knees: bilateral knee non-tender, bilateral knee normal inspection, bilateral knee normal range of motion, bilateral knee no evidence of injury Ankles: bilateral ankle non-tender, bilateral ankle normal inspection, bilateral ankle normal range of motion, bilateral ankle no evidence of injury Feet: right foot non-tender, right foot normal inspection, right foot normal range of motion, right foot no evidence of injury; left foot abrasions/lacerations, left foot bone tenderness, left foot soft tissue tenderness, left foot swelling Neurologic/Tendon: normal sensation, normal motor functions, normal tendon functions Neurologic/Psychiatric: no motor/sensory deficits, alert, normal mood/affect Skin: normal color, warm/dry Lymphatic: no adenopathy Progress/Results/Core Measures Results/Orders My Orders Orders - ARMANI JORDAN MD Foot, Left, 3 Views (09/26/21 13:13) Ibuprofen Tablet (Motrin Tablet) (09/26/21 13:15) Medications Given in ED Current Medications Medications Dose Ordered Sig/Amanda Route Start Time Stop Time Status Last Admin Dose Admin Ibuprofen 600 mg ONCE ONCE PO 09/26/21 13:15 09/26/21 13:16 DC 09/26/21 13:26 600 MG Vital Signs/I&O 09/26/21 12:59 Temp 36.0 Pulse 70 Resp 18 B/P (MAP) 102/66 (78) Pulse Ox 99 Blood Pressure Mean: 78 Progress Progress Note : Progress Note 25-year-old male with above history coming in due to trauma to the top of his left foot. ABCs were intact and vitals were stable on presentation. Physical exam with some swelling and bruising to the top of the foot just around the second and third toes however they meet the metatarsal heads. X-ray of the foot ordered and interpreted by me showing no fracture or dislocation. Given ibuprofen for pain control. Given a postop shoe for pain control as well. I believe he is stable for discharge with outpatient follow-up. He was sent home with strict return precautions. Departure Impression Primary Impression: Contusion of foot Qualified Codes: S90.32XA - Contusion of left foot, initial encounter Disposition: HOME, SELF-CARE Condition: Stable Departure-Patient Inst. Decision time for Depature: 13:28 Referrals: ZULEIKA SINCLAIR DO (PCP/Family) Primary Care Physician Patient Instructions: Minor Contusion ED Add. Discharge Instructions: Fortunately the x-ray of your foot does not show that anything is broken. Use the postop shoe for pain control if that helps, and you can stop wearing it when you Noller feel like it is helping. Take ibuprofen 600 mg every 6 hours for pain. He can also ice it 20 minutes on roughly 3-4 times per day. Follow-up with your regular doctor in the next week if you are still having severe pain. Work/School Note: Work Release Form Date Seen in the Emergency Department: Sep 26, 2021 Return to Work: Sep 27, 2021 Restrictions: No Restrictions ARMANI JORDAN MD Sep 26, 2021 13:16
--- NOTE | 2021-09-26 13:40 | Diagnostic Imaging Report ---
INDICATION: Left foot injury. Pain 3 views of the left foot show no fracture, dislocation or other abnormality. IMPRESSION: Normal left foot. Dictated by: Dictated on workstation # [id number]
== END 2021-09-26 13:35 | disposition home or self-care (01) ==
LOC: EDUNIT# 12:47 → ER 12:50
DX: S90.32XA Contusion of left foot, initial encounter (principal); K21.9 Gastro-esophageal reflux disease without esophagitis; F41.9 Anxiety disorder, unspecified; F32.9 Major depressive disorder, single episode, unspecified; Z79.899 Other long term (current) drug therapy; W20.8XXA Other cause of strike by thrown, projected or falling object, initial encounter
CPT/HCPCS: 73630

== ENCOUNTER 2021-11-01 07:46 | Emergency (ER) | payer BC ==
[~2021-11-01] VITALS: Ht 162 cm; Wt 65.9 kg
[2021-11-01] MEDS ORDERED: KETOROLAC 30 MG/ML VIAL IVP ONE (08:15)
[2021-11-01] MEDS ORDERED: ANTACID SUSP 30 ML UDC (MYLANTA) PO ONE (08:15)
[2021-11-01] MEDS ORDERED: LIDOCAINE 2% VISCOUS 15 ML UDC PO ONE (08:15)
[2021-11-01] MEDS ORDERED: SUCRALFATE 1 GM (CARAFATE) TAB PO ONE (08:15)
--- NOTE | 2021-11-01 08:15 | ED Chest Pain ---
General Chief Complaint: COVID19 Suspect/Confirmed Stated Complaint: CP AND SOB Nursing Triage Note: AMB TO ED 5 DAYS SINCE TESTED POS FOR COVID HAD SYMPTOMS ON Oct BUT TESTED NEG THSI AM C/O FEELING SOA AND CHEST PAIN ASA GIVEN BY EMS. PAIN WORSE WITH MOVEMENT Source: patient, EMS Exam Limitations: no limitations History of Present Illness Date Seen by Provider: Nov 01, 2021 Time Seen by Provider: 08:00 Initial Comments Patient is a 25-year-old male, currently at the end of his first 5-day quarantine for COVID diagnosed earlier in the week. Developed some lower chest/epigastric abdominal pain this morning. Not nauseated. Feels a little short of breath. Rates his pain at a "10". Has not taken any Tylenol or ibuprofen. No fevers or chills. Mild sore throat. Has a long history of gastroesophageal reflux disease on chronic PPI. Previous Andreea fundoplication by Dr. Borrero. States he is taken his daily PPI this morning as well as his metoprolol that he takes for rapid heartbeat. No radiation of the pain. No associated diaphoresis. No bloody emesis or blood in stool. Short of breath secondary to the severity of the "pain". No rashes, joint pain or swelling. No family history of blood clot or early coronary artery disease. Does not smoke, vape or use marijuana per his report. All other review of systems reviewed and negative except as stated. Timing/Duration: 1-3 hours Severity/Quality: severe ("10"), pressure, sharp Location: central, epigastric Radiation: no radiation Activities at Onset: none Prior CP/Workup: other (h/o tachycardia) ASA po OPERATOR CONTROL ROOM: Yes NTG SL OPERATOR CONTROL ROOM: No Associated Symptoms: heartburn Allergies and Home Medications Allergies Coded Allergies: No Known Drug Allergies (Verified , 04/18/21) Patient Home Medication List Home Medication List Reviewed: Yes Buspirone HCl (Buspirone HCl) 10 Mg Tablet, 10 MG PO DAILY, (Reported) Entered as Reported by: MIREYA KENNEDY on 07/05/21 1259 Dicyclomine HCl (Dicyclomine HCl) 10 Mg Capsule, 10 MG PO QID, (Reported) Entered as Reported by: ELKE SUTHERLAND on 05/15/20 1148 Duloxetine HCl (Duloxetine HCl) 30 Mg Capsule.dr, 30 MG PO DAILY, (Reported) Entered as Reported by: MIREYA KENNEDY on 07/05/21 125 Famotidine (Pepcid) 40 Mg Tablet, 40 MG PO DAILY, (Reported) Entered as Reported by: MIREYA KENNEDY on 04/12/21 09 Fluoxetine HCl (Fluoxetine HCl) 40 Mg Capsule, 40 MG PO DAILY, (Reported) Entered as Reported by: MIREYA KENNEDY on 07/05/21 1259 Hyoscyamine Sulfate (Hyoscyamine Sulfate) 0.125 Mg Tab.subl, 0.125 MG SL Q6H, (Reported) Entered as Reported by: MIREYA KENNEDY on 07/05/21 125 Metoprolol Succinate (Metoprolol Succinate) 25 Mg Tab.er.24h, 25 MG PO DAILY, (Reported) Entered as Reported by: MIREYA KENNEDY on 04/12/21902 Ondansetron HCl (Ondansetron HCl) 4 Mg Tablet, 4 MG PO Q6H PRN for NAUSEA/VOMITING, (Reported) Entered as Reported by: ELKE SUTHERLAND on 05/15/20 1148 Pantoprazole Sodium (Protonix) 40 Mg Tablet.dr, 40 MG PO DAILY, (Reported) Entered as Reported by: ELKE SUTHERLAND on 01/05/20 1545 Sucralfate (Sucralfate) 1 Gm Tablet, 1 GM PO ACHS, (Reported) Entered as Reported by: ELKE SUTHERLAND on 05/15/20 1148 Tramadol HCl (Tramadol HCl) 50 Mg Tablet, 50 MG PO UD, (Reported) Entered as Reported by: MIREYA KENNEDY on 04/12/21 09 Review of Systems Review of Systems Constitutional: see HPI EENTM: Throat Pain Respiratory: Cough (slight) Gastrointestinal: Abdominal Pain (epigastric) Genitourinary: No Symptoms Reported Musculoskeletal: no symptoms reported Skin: no symptoms reported Psychiatric/Neurological: No Symptoms Reported All Other Systems Reviewed Negative Unless Noted: Yes Past Lodtgob-Ekaqzk-Fftxun Hx Immunizations Up To Date Tetanus Booster (TDap): Less than 5yrs PED Vaccines UTD: No First/Initial COVID19 Vaccinat: 02/2021 Second COVID19 Vaccination Perez: 03/2021 Third COVID19 Vaccination Date: february 2021 Seasonal Allergies Seasonal Allergies: No Past Medical History Surgeries: Yes (NOSE BLEED) Abdominal, Gallbladder Respiratory: No Currently Using CPAP: No Currently Using BIPAP: No Cardiac: No Neurological: No Reproductive Disorders: No Sexually Transmitted Disease: No HIV/AIDS: No Genitourinary: No Gastrointestinal: Yes (nausea) Gastroesophageal Reflux, Chronic Diarrhea, Irritable Bowel Musculoskeletal: No Endocrine: No HEENT: Yes (epitaxis) Hearing Impairment: Denies Cancer: No Psychosocial: No Integumentary: No Blood Disorders: No Adverse Reaction/Blood Tranf: No (N/A) Physical Exam Vital Signs Vital Signs - First Documented 11/01/21 07:52 Temp 35.0 Pulse 76 Resp 18 B/P (MAP) 138/78 (98) Capillary Refill : Less Than 3 Seconds Height, Weight, BMI Height: 5'5.00" Weight: 120lbs. 0.0oz. 54.967580lx; 25.00 BMI Method:Estimated General Appearance: WD/WN, Anxious HEENT: PERRL/EOMI, Pharynx Normal Neck: Normal Inspection, Non Tender, Supple Respiratory: Chest Non Tender, Lungs Clear (100% RA), Normal Breath Sounds, No Accessory Muscle Use, No Respiratory Distress Cardiovascular: Regular Rate, Rhythm (70's), Normal Peripheral Pulses Gastrointestinal: Soft, Tenderness (epigastric tenderness to palpation) Extremity: Normal Capillary Refill, Normal Inspection, Normal Range of Motion Neurologic/Psychiatric: Alert, Oriented x3, No Motor/Sensory Deficits, Normal Mood/Affect Skin: Normal Color, Warm/Dry Progress/Results/Core Measures Results/Orders My Orders Orders - TEJAS RIOJAS MD Ed Iv/Invasive Line Start (11/01/21 08:03) Chest 1 View, Ap/Pa Only (11/01/21 08:03) Ekg Tracing (11/01/21 08:03) Ketorolac Injection (Toradol Injection) (11/01/21 08:15) Sucralfate Tablet (Carafate Tablet) (11/01/21 08:15) Lidocaine 2% Viscous 15 Ml (Xylocaine Vi (11/01/21 08:15) Antacid Suspension (Mylanta Suspension (11/01/21 08:15) Medications Given in ED Current Medications Medications Dose Ordered Sig/Amanda Route Start Time Stop Time Status Last Admin Dose Admin Al Hydrox/Mg Hydrox/Simethicone 30 ml ONCE ONCE PO 11/01/21 08:15 11/01/21 08:16 DC 11/01/21 08:19 30 ML Ketorolac Tromethamine 15 mg ONCE ONCE IVP 11/01/21 08:15 11/01/21 08:16 DC 11/01/21 08:19 15 MG Lidocaine HCl 5 ml ONCE ONCE PO 11/01/21 08:15 11/01/21 08:16 DC 11/01/21 08:19 5 ML Sucralfate 1 gm ONCE ONCE PO 11/01/21 08:15 11/01/21 08:16 DC 11/01/21 08:28 1 GM Vital Signs/I&O 11/01/21 07:52 Temp 35.0 Pulse 76 Resp 18 B/P (MAP) 138/78 (98) Blood Pressure Mean: 98 Progress Progress Note : Time: 08:49 Progress Note Patient reevaluated after Toradol and GI cocktail. Feels much better. I have advised him to continue his PPI as well as tsmw-sqt-vavmysc ibuprofen and Tylenol for body aches/pain. He is day 5 of his quarantine for COVID, I recommended that he can return to work tomorrow as scheduled strictly massed for another 5 days. Patient verbalizes understanding of his discharge instructions and is comfortable with plan of care. Vital signs are stable, patient is stable for discharge. Initial ECG Impression Date: Nov 01, 2021 Initial ECG Impression Time: 08:00 Initial ECG Rate: 71 Initial ECG Rhythm: Normal Sinus Initial ECG Intervals: Normal Initial ECG Impression: Normal Diagnostic Imaging Diagonstic Imaging: Xray Plain Films/CT/US/NM/MRI: chest Comments [facility], [place] NAME: SARAH COLLINS [facility] REC#: [id number] PT STATUS: REG ER : 1995 PHYSICIAN: TEJAS RIOJAS MD ADMIT DATE: 11/01/21/ER Draft Date of Exam:11/01/21 CHEST 1 VIEW, AP/PA ONLY INDICATION: Shortness of air and chest pain. Patient had recent diagnosis of Covid-19. TIME OF EXAM: 8:13 AM Correlation is made with prior chest from 12/07/2020. Heart size is normal. Lungs appear to be clear of acute infiltrates. The pulmonary vascularity is normal. There is no effusion or pneumothorax. IMPRESSION: No acute cardiopulmonary process is detected. Dictated on workstation # [id number] Dict: 11/01/21 0832 Trans: 11/01/21 0838 [id number] [id number] Interpreted by: SHASHANK FAIRBANKS MD Electronically signed by: Departure Impression Primary Impression: GERD (gastroesophageal reflux disease) Qualified Codes: K21.9 - Gastro-esophageal reflux disease without esophagitis Additional Impression: Epigastric pain Disposition: HOME, SELF-CARE Condition: Stable Departure-Patient Inst. Decision time for Depature: 08:50 Referrals: ZULEIKA YEPEZ DO (PCP/Family) Primary Care Physician Patient Instructions: Acid Reflux and GERD in Adults (DC) Add. 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 You can also supplement as needed with a little Maalox. Take qgps-crx-nevxuvj Tylenol and/or ibuprofen as needed for pain. Always take ibuprofen with food. You can take up to 3 tablets which is 600 mg every 6 hours. Follow-up with Dr. Yepez after your quarantine/once you are asymptomatic from the COVID. Return to the emergency room for any new, concerning or emergent complaints or especially if you notice vomiting of blood/coffee grounds or passed blood in your stools. TEJAS RIOJAS MD Nov 01, 2021 08:15
--- NOTE | 2021-11-01 08:38 | Diagnostic Imaging Report ---
INDICATION: Shortness of air and chest pain. Patient had recent diagnosis of Covid-19. TIME OF EXAM: 8:13 AM Correlation is made with prior chest from 12/07/2020. Heart size is normal. Lungs appear to be clear of acute infiltrates. The pulmonary vascularity is normal. There is no effusion or pneumothorax. IMPRESSION: No acute cardiopulmonary process is detected. Dictated by: Dictated on workstation # [id number]
[2021-11-01 09:11] VITALS: BP 123/74
== END 2021-11-01 09:11 | disposition home or self-care (01) ==
LOC: EDUNIT# 07:46 → ER 07:47
DX: K21.9 Gastro-esophageal reflux disease without esophagitis (principal)
CPT/HCPCS: 71045; 93005

== ENCOUNTER → 2021-11-28 | Outpatient (CLI) | payer BC, OTHER | END | disposition home or self-care (01) | LOC: CARD 12:56 | PROVIDERS: ATTEND Nurse Practitioner Family | DX: I47.1 Supraventricular tachycardia (principal); I07.1 Rheumatic tricuspid insufficiency | CPT/HCPCS: 93306 ==

== ENCOUNTER → 2021-11-28 | Outpatient (CLI) | payer BC, OTHER ==
--- NOTE | 2021-11-28 17:20 | Diagnostic Imaging Report ---
PROCEDURE: US Thyroid. TECHNIQUE: Multiple real-time grayscale images were obtained of the thyroid in various projections. INDICATION: Dysphagia. COMPARISON: None available. FINDINGS: The right lobe of the thyroid gland measures 5.4 x 1.4 x 1.7 cm. It maintains a homogeneous echotexture without discrete nodule. The left lobe of the thyroid gland measures 5.3 x 1.0 x 1.7 cm. It maintains a homogeneous echotexture without discrete nodule. The isthmus is unremarkable. IMPRESSION: Unremarkable examination without discrete thyroid nodule. Dictated by: Dictated on workstation # [id number]
== END ==
LOC: RAD 13:15
PROVIDERS: ATTEND Nurse Practitioner Family
DX: R13.10 Dysphagia, unspecified (principal)
CPT/HCPCS: 76536

== ENCOUNTER 2021-12-28 08:19 | Emergency (ER) | payer OTHER ==
[~2021-12-28] VITALS: Ht 162.5 cm; Wt 68.0 kg
[2021-12-28 08:27] VITALS: BP 102/64
--- NOTE | 2021-12-28 08:52 | ED General ---
General Chief Complaint: Bite-Animal/Human/Insect Stated Complaint: CAT BITE Source of Information: Patient Exam Limitations: No Limitations (ROX CRUZ MED STUDENT) History of Present Illness Date Seen by Provider: Dec 28, 2021 Time Seen by Provider: 08:35 Initial Comments Patient is a 26 year old male who presents to the ED with complaints of being bitten/scratched by a stray cat at 0200 this am while talking his dogs outside. He attempted to pull the cat away from his dogs as the cat was attacking them and he was bitten x 1 and scratched multiple times on both arms. Reports that the cat is wild and not his and has been living in the basement of his house but are unable to catch it. This incident took place on his patio. Reports he took nothing for the pain. Denies pain right now. Denies chest pain, SOB, fevers, chills, and headaches. Timing/Duration: 4-6 Hours Severity: Mild Modifying Factors: improves with Movement Associated Systoms: Denies Symptoms; No Chest Pain, No Cough, No Fever/Chills, No Nausea/Vomiting (ROX CRUZ MED STUDENT) Initial Comments 26-year-old presents to the emergency department chief complaint of cat bite to the right hand while trying to separate the cat and his dog. Cat is reportedly a feral cat that has been seen around the neighborhood. He reports it happened this morning at around 4 AM. He states that the right second MCP joint has gotten red and swollen subsequent to the injury. He also complains of scratches to the left forearm. He did state that he was able to kill the cat and bury it in his backyard. He has never had rabies prophylaxis before. Unknown vaccination status of the cat. [facility] contacted and animal control advised that the cat would be his responsibility to have rabies tested and financially his burden. He is unable to afford this. He elects to undergo rabies vaccination. No other complaints of recent illness or injury. All other review of systems reviewed and negative except as stated (TEJAS RIOJAS MD) Allergies and Home Medications Allergies Coded Allergies: No Known Drug Allergies (Verified , 04/18/21) Patient Home Medication List Buspirone HCl (Buspirone HCl) 10 Mg Tablet, 10 MG PO DAILY, (Reported) Entered as Reported by: MIREYA KENNEDY on 07/05/21 1259 Dicyclomine HCl (Dicyclomine HCl) 10 Mg Capsule, 10 MG PO QID, (Reported) Entered as Reported by: ELKE SUTHERLAND on 05/15/20 1148 Duloxetine HCl (Duloxetine HCl) 30 Mg Capsule.dr, 30 MG PO DAILY, (Reported) Entered as Reported by: MIREYA KENNEDY on 07/05/21 125 Famotidine (Pepcid) 40 Mg Tablet, 40 MG PO DAILY, (Reported) Entered as Reported by: MIREYA KENNEDY on 04/12/21 09 Fluoxetine HCl (Fluoxetine HCl) 40 Mg Capsule, 40 MG PO DAILY, (Reported) Entered as Reported by: MIREYA KENNEDY on 07/05/21 125 Hyoscyamine Sulfate (Hyoscyamine Sulfate) 0.125 Mg Tab.subl, 0.125 MG SL Q6H, (Reported) Entered as Reported by: MIREYA KENNEDY on 07/05/21 125 Metoprolol Succinate (Metoprolol Succinate) 25 Mg Tab.er.24h, 25 MG PO DAILY, (Reported) Entered as Reported by: MIREYA KENNEDY on 04/12/21 09 Ondansetron HCl (Ondansetron HCl) 4 Mg Tablet, 4 MG PO Q6H PRN for NAUSEA/VOMITING, (Reported) Entered as Reported by: ELKE SUTHERLAND on 05/15/20 1148 Pantoprazole Sodium (Protonix) 40 Mg Tablet.dr, 40 MG PO DAILY, (Reported) Entered as Reported by: ELKE SUTHERLAND on 01/05/20 1545 Sucralfate (Sucralfate) 1 Gm Tablet, 1 GM PO ACHS, (Reported) Entered as Reported by: ELKE SUTHERLAND on 05/15/20 1148 Tramadol HCl (Tramadol HCl) 50 Mg Tablet, 50 MG PO UD, (Reported) Entered as Reported by: MIREYA KENNEDY on 04/12/21 09 Review of Systems Review of Systems Constitutional: no symptoms reported; No chills, No diaphoresis, No fever EENTM: no symptoms reported; No ear discharge, No blurred vision, No double vision Respiratory: no symptoms reported; No cough, No short of breath Cardiovascular: no symptoms reported; No chest pain, No edema, No palpitations Gastrointestinal: No abdominal pain, No nausea, No vomiting Genitourinary: no symptoms reported; No dysuria, No frequency Musculoskeletal: No back pain; other (redness, minimal swelling right second digit) Skin: No change in hair/nails; other (Multiple scratches to both arms and bite wound to right hand.) Psychiatric/Neurological: Denies Anxiety; Depressed; Denies Headache Hematologic/Lymphatic: No Symptoms Reported; Denies Easy Bleeding, Denies Easy Bruising Immunological/Allergic: no symptoms reported; denies food allergy (ROX CRUZ Prifloat STUDENT) All Other Systems Reviewed Negative Unless Noted: Yes (PERLA CRUZSqwiggle STUDENT) Past Fuyhhkx-Bjcvpt-Jcpjta Hx Patient Social History Tobacco Use?: No Smoking Status: Never a Smoker Smokeless Tobacco Frequency: Never a User Use of E-Cig and/or Vaping dev: No Use of E-Cig and/or Vaping Jaime: Never a User Substance use?: No Substance frequency: Rarely Alcohol Use?: No Pt feels they are or have been: No (ROX CRUZ Prifloat STUDENT) Immunizations Up To Date Tetanus Booster (TDap): Less than 5yrs PED Vaccines UTD: No First/Initial COVID19 Vaccinat: unsure of date Second COVID19 Vaccination Perez: unsure of date. Third COVID19 Vaccination Date: unsure of date (ROX CRUZ Prifloat STUDENT) Seasonal Allergies Seasonal Allergies: No (ROX CRUZ Prifloat JANEEN) Past Medical History Surgeries: Yes (NOSE BLEED) Abdominal, Gallbladder (cholecystectomy) Respiratory: No Currently Using CPAP: No Currently Using BIPAP: No Cardiac: No Neurological: No Reproductive Disorders: No Sexually Transmitted Disease: No HIV/AIDS: No Genitourinary: No Gastrointestinal: Yes (nausea) Gastroesophageal Reflux, Chronic Diarrhea, Irritable Bowel Musculoskeletal: No Endocrine: No HEENT: Yes (epitaxis) Loss of Vision: Denies Hearing Impairment: Denies Cancer: No Psychosocial: Yes Depression Integumentary: No Blood Disorders: No Adverse Reaction/Blood Tranf: No (N/A) (ROX CRUZ Prifloat STUDENT) Physical Exam Vital Signs Vital Signs - First Documented 12/28/21 08:27 Temp 36.4 Pulse 73 Resp 18 B/P (MAP) 102/64 (77) Pulse Ox 99 O2 Delivery Room Air (TEJAS RIOJAS MD) Vital Signs Capillary Refill : (ROX CRUZ MED STUDENT) Height, Weight, BMI Height: 5'5.00" Weight: 120lbs. 0.0oz. 54.431214re; 25.00 BMI Method:Estimated General Appearance: No Apparent Distress, WD/WN Eyes: Bilateral Eye Normal Inspection, Bilateral Eye PERRL, Bilateral Eye EOMI HEENT: PERRL/EOMI, Pharynx Normal, Moist Mucous Membranes Neck: Full Range of Motion, Normal Inspection, Non Tender Respiratory: Chest Non Tender, Lungs Clear, Normal Breath Sounds Cardiovascular: Regular Rate, Rhythm, No Edema, Normal Peripheral Pulses Gastrointestinal: Normal Bowel Sounds, Non Tender, Soft Rectal: Deferred Back: Normal Inspection, No Vertebral Tenderness Extremity: Normal Capillary Refill, No Calf Tenderness, No Pedal Edema, Other (Right second metacarpophalangeal joint cat bite x 1, scabbed over. Multiple superficial scratches bilateral lower arms distal to elbow. Right second metacarophalangeal joint red and tender to palaption. No streaking noted. ) Neurologic/Psychiatric: Alert, Oriented x3, No Motor/Sensory Deficits, Normal Mood/Affect Skin: Warm/Dry Lymphatic: No Adenopathy (Head and Neck) (ROX CRUZ MED STUDENT) Skin: Other (Puncture wounds noted consistent with cat bite to the right dorsal hand around the second metacarpophalangeal joint overlying erythema and swelling noted.) (TEJAS RIOJAS MD) Progress/Results/Core Measures Suspected Sepsis SIRS Temperature: Pulse: Respiratory Rate: Blood Pressure / Mean: (ROX CRUZ MED STUDENT) Results/Orders My Orders Orders - TEJAS RIOJAS MD Hand, Right, 3 Views (12/28/21 08:49) Dipht,Pertuss(Acell),Tet Adult (Boostrix (12/28/21 09:15) Rabies Vaccine Human Dipl Cell (Rabavert (12/28/21 09:45) Rabies Immune Globulin/Pf 10ml (Kedrab 1 (12/28/21 09:45) (TEJAS RIOJAS MD) Vital Signs/I&O 12/28/21 08:27 Temp 36.4 Pulse 73 Resp 18 B/P (MAP) 102/64 (77) Pulse Ox 99 O2 Delivery Room Air (TEJAS RIOJAS MD) Vital Signs/I&O Capillary Refill : (ROX CRUZ MED STUDENT) Progress Note : Time: 09:49 Progress Note Patient consented to rabies vaccination. A total of 1360 units of rabies immunoglobulin is needed for 20 units/kg of body weight. This will be 9 mL total of rabies immunoglobulin. 1ml infiltrated around the actual cat bite wound. the rest given in hips and thighs. He was also given the rabies vaccine, today is day 0. He will need subsequent vaccination with rabies vaccine on day 3 which will be December 31, day 7 January 04, day 14 January 11. An order form has been filled out for him to come back to the hospital to get this done. Tetanus prophylaxis has also been administered. We are also going to put him on Augmentin. His pharmacy of choice is [facility]. He is given return precautions. He verbalized understanding. All questions are sought and answered. (TEJAS RIOJAS MD) Diagnostic Imaging Diagonstic Imaging: Xray Plain Films/CT/US/NM/MRI: hand Comments [facility] [place], [place] NAME: SARAH COLLINS [facility] REC#: [id number] PT STATUS: REG ER : 1995 PHYSICIAN: TEJAS RIOJAS MD ADMIT DATE: 12/28/21/ER Draft Date of Exam:12/28/21 HAND, RIGHT, 3 VIEWS INDICATION: Cat bite to the right hand. TIME OF EXAM: 8:47 AM 3 views of the right hand were obtained. Distal radius and ulna are intact. Carpus is intact. Metacarpals and phalanges appear to be intact. No fractures are seen. Soft tissues are unremarkable. No no definite radiopaque soft tissue foreign body is detected. IMPRESSION: No acute abnormality is detected. Dictated on workstation # [id number] Dict: 12/28/21 0856 Trans: 12/28/21 0858 CV [id number] Interpreted by: SHASHANK FAIRBANKS MD Electronically signed by: (TEJAS RIOJAS MD) Departure Impression Primary Impression: Cat bite of right hand Qualified Codes: S61.451A - Open bite of right hand, initial encounter; W55.01XA - Bitten by cat, initial encounter Additional Impression: Encounter for prophylactic rabies immune globin Disposition: HOME, SELF-CARE Condition: Stable Departure-Patient Inst. Decision time for Depature: 09:52 (TEJAS RIOJAS MD) Referrals: [facility] (PCP/Family) Primary Care Physician Patient Instructions: Animal Bites ED Add. Discharge Instructions: Monitor the wounds on your right hand and left arm for signs of infection such as increasing redness, drainage of pus, worsening pain or swelling. We have sent a prescription for Augmentin, an antibiotic that you will take twice a day for the next 5 days. Keep the wounds clean with normal soap and water. Wash twice a day. You will need to come back to complete the vaccination protocol on day 3 which is December 31 here at the hospital. You will also need to come back on day 7 which is January 04 and day 14 on January 11 for further rabies shots. Come back to the emergency department sooner for any worsening symptoms. Follow-up with [facility]. Your tetanus shot has also been updated today. Scripts Amoxicillin/Potassium Clav (Amox Tr-K Clv 875-125 mg Tab) 1 Each Tablet 1 EACH PO BID for 5 Days, #10 TAB Prov: TEJAS RIOJAS MD 12/28/21 Work/School Note: Work Release Form Date Seen in the Emergency Department: Dec 28, 2021 Return to Work: Dec 29, 2021 ROX CRUZ MED STUDENT Dec 28, 2021 08:52 TEJAS RIOJAS MD Dec 28, 2021 09:09
--- NOTE | 2021-12-28 08:58 | Diagnostic Imaging Report ---
INDICATION: Cat bite to the right hand. TIME OF EXAM: 8:47 AM 3 views of the right hand were obtained. Distal radius and ulna are intact. Carpus is intact. Metacarpals and phalanges appear to be intact. No fractures are seen. Soft tissues are unremarkable. No no definite radiopaque soft tissue foreign body is detected. IMPRESSION: No acute abnormality is detected. Dictated by: Dictated on workstation # [id number]
[2021-12-28] MEDS ORDERED: TETANUS,DIPTH,PERTUSS P/F (BOOSTRIX) 0.5 ML VIAL IM ONE (09:15)
[2021-12-28] MEDS ORDERED: RABIES VACCINE HUMAN DIPL CELL 1 ML/2.5 UNITS SYR IM ONE (09:45)
[2021-12-28] MEDS ORDERED: RABIES IMMUNE GLOBULIN (KEDRAB) 1,500 UNITS/10 ML IM ONE (09:45)
[2021-12-28] MEDS ORDERED: AMOX1TAB12 PO (09:54)
== END 2021-12-28 10:16 | disposition home or self-care (01) ==
LOC: EDUNIT# 08:19 → ER 08:21
DX: S61.451A Open bite of right hand, initial encounter (principal); S50.811A Abrasion of right forearm, initial encounter; S50.812A Abrasion of left forearm, initial encounter; W55.01XA Bitten by cat, initial encounter
CPT/HCPCS: 73130; 90675; 90676; 90715

== ENCOUNTER 2022-01-11 13:07 | Outpatient (RCR) | payer OTHER ==
[2022-01-01 13:30] VITALS: BP 111/66
[2022-01-04 13:10] VITALS: BP_SYST 107; BP_SYST 111; BP_DIAS 66; BP_DIAS 68
[~2022-01-11 13:07] MED LIST changes: +AMOX1TAB12 PO; +RABIES VACCINE HUMAN DIPL CELL 1 ML/2.5 UNITS SYR IM ONE; +RABIES VACCINE HUMAN DIPL CELL 1 ML/2.5 UNITS SYR INJ ONE
[2022-01-11 13:15] VITALS: BP 118/67
[2022-01-11] MEDS ORDERED: RABIES VACCINE HUMAN DIPL CELL 1 ML/2.5 UNITS SYR INJ ONE (13:45)
== END 2022-01-17 | disposition home or self-care (01) ==
LOC: SDC 13:07
PROVIDERS: ATTEND Emergency Medicine
DX: Z23 Encounter for immunization (principal)
CPT/HCPCS: 90471; 90675; 96372